=== PATIENT | female | born 1960 | race Caucasian/White ===

== ENCOUNTER 2016-11-20 16:36 | Emergency (ER) | payer SELFPAY ==
[2016-11-20 16:41] VITALS: BP 140/67; PULSE 78; TEMP 97.9; BMI 27.9
[2016-11-20] MEDS ORDERED: IBUPROFEN 400 MG TABLET (FP) PO ONE ×2 (17:46→17:52)
[2016-11-20] MEDS ORDERED: DIPHTH,PERTUSS(ACELL),TET 0.5 ML DISP.SYRIN IM ONE (18:31)
--- NOTE | 2016-11-20 18:37 | PDOC ---
History of Present Illness - General Chief Complaint: Wound Stated Complaint: WOUND INFECTION Time Seen by Provider: 11/20/16 17:20 History Source: Patient - History of Present Illness Occurred: reports: other Lower Extremity Pain Location: right: 1st toe Past History - Past Medical History Allergies/Adverse Reactions: Allergies Allergy/AdvReac Type Severity Reaction Status Date / Time fluconazole Allergy Rash Verified 11/20/16 16:41 Home Medications: Ambulatory Orders Atorvastatin Ca [Lipitor] 40 mg PO HS 11/20/16 Cephalexin [Keflex] 500 mg PO Q4H #28 capsule 11/20/16 Ibuprofen [Motrin -] 600 mg PO QID #28 tablet 11/20/16 Hypercholesterolemia: Yes - Immunization History Immunization Up to Date: Yes - Psycho/Social/Smoking Cessation Hx Anxiety: No Suicidal Ideation: No Smoking Status: No Smoking History: Never smoked Number of Cigarettes Smoked Daily: 0 Information on smoking cessation initiated: No Hx Alcohol Use: No Drug/Substance Use Hx: No Substance Use Type: None Review of Systems - Review of Systems Constitutional: No: Chills, Fever *Physical Exam - Vital Signs Last Vital Signs Temp Pulse Resp BP Pulse Ox 97.9 F 78 18 140/67 100 11/20/16 16:39 11/20/16 16:39 11/20/16 16:39 11/20/16 16:39 11/20/16 16:39 - Physical Exam General Appearance: Yes: Appropriately Dressed. No: Apparent Distress HEENT: positive: Normal Voice Neck: positive: Supple Respiratory/Chest: negative: Respiratory Distress Extremity: positive: Other (ingrown nail to R great toe w/ minmal swelling and erythema to affected paronychium, no induration/fluctuance) Integumentary: positive: Dry, Warm Neurologic: positive: Fully Oriented, Alert, Normal Mood/Affect ED Treatment Course - Medications Given in the ED: ED Medications Discontinued Medications Generic Name Dose Route Start Last Admin Trade Name Freq PRN Reason Stop Dose Admin Ibuprofen 800 mg 11/20/16 17:46 11/20/16 17:52 Motrin - PO 11/20/16 17:47 800 mg ONCE ONE Administration Medical Decision Making - Medical Decision Making 11/20/16 18:36 56 yo F, h/o HLD, here w/ R great toe pain and swellign x 1 week. No discharge, f/c. Denies trauma See exam Ingrown nail w/ early paronychia -pain control -tetanus -nail incision -no need for I&D -dc w/ abx -wound check in 2 days 11/20/16 18:38 11/20/16 18:39 S/p nail excision of ingrown nail s/p digital block w/ local wound care and dressing. Given ortho shoe for comfort. Stable for dc w/ abx and wound check in 2 days *DC/Admit/Observation/Transfer Diagnosis at time of Disposition: Ingrown nail Paronychia Qualifiers: Laterality: right Qualified Code(s): L03.011 - Cellulitis of right finger - Discharge Dispostion Disposition: HOME Condition at time of disposition: Good - Prescriptions Prescriptions: Cephalexin [Keflex] 500 mg PO Q4H #28 capsule Ibuprofen [Motrin -] 600 mg PO QID #28 tablet - Patient Instructions Printed Discharge Instructions: DI for Ingrown Toenail Removal, Paronychia Additional Instructions: Usted tiene timmy infeccin en el dedo del pie que fue causada por uas creciendo en khalil piel. En el futuro, para evitar esto, aaliyah las uas directamente a mohinder s y no demasiado corto. Tambin no usa zapatos que estn apretados alrededor de los dedos de los pies. Roger los antibiticos segn las indicaciones y volver a ED para la revisin de la herida en 2 bynum, antes si los sntomas empeoran. Print Language: HAITIAN
== END 2016-11-20 18:42 | disposition home or self-care (01) ==
LOC: JERFT 16:36
PROC: 0HBRXZZ Excision of Toe Nail, External Approach (ICD-10-PCS; principal; 2016-11-20)
DX: L60.0 Ingrowing nail (principal); L03.031 Cellulitis of right toe
CPT/HCPCS: 90715; 99281-25

== ENCOUNTER 2016-11-23 12:57 | Emergency (ER) | payer SELFPAY ==
[2016-11-23 13:03] VITALS: BP 116/66; PULSE 75; TEMP 98.5; BMI 29.2
--- NOTE | 2016-11-23 13:28 | PDOC ---
Suture Removal/Wound Check HPI - History of Present Illness Chief Complaint: Revisit,Wound Recheck Stated Complaint: REVISIT, FOLLOW UP Time Seen by Provider: 11/23/16 13:04 History Source: Yes: Patient Exam Limitations: Yes: No Limitations - Previous ED Treatment Type of procedure performed on last visit: Yes: Other (toenail removal) Past History - Past Medical History Allergies/Adverse Reactions: Allergies fluconazole Allergy (Verified 11/23/16 12:59) Rash Home Medications: Ambulatory Orders Atorvastatin Ca [Lipitor] 40 mg PO HS 11/20/16 Cephalexin [Keflex] 500 mg PO Q4H #28 capsule 11/20/16 Ibuprofen [Motrin -] 600 mg PO QID #28 tablet 11/20/16 General: Yes: no pertinent history - Immunization History Immunizations Up to Date: Yes Tetanus Status: Less than 5 years - Social History Smoking History: No Smoking Status: Never smoked Number of Ciarettes Per Day: 0 Alcohol Use: none Drug Use: none Suture Removal/Wound Check PE - Physical Exam Laceration/Wound Check Symptoms: reports: None, Resolved Comments: 11/23/16 13:30 right great toenail with bandage intact, no drainage or redness no swelling , FROM nv intact , no pus drainage 11/23/16 13:30 11/23/16 13:39 *Review of Systems - Review of Systems Able to Perform ROS?: Yes Constitutional: No: Symptoms Reported HEENTM: No: Symptoms Reported Respiratory: No: Symptoms reported Cardiac (ROS): No: Symptoms Reported ABD/GI: No: Symptoms Reported : No: Symptoms Reported Musculoskeletal: No: Symptoms Reported Integumentary: Yes: See HPI. No: Symptoms Reported Neurological: No: Symptoms reported Procedures - Laceration/Wound Repair Right 1st digit Progress: 11/23/16 13:39 wound redressed sterile dressing and bacitracin placed Medical Decision Making - Medical Decision Making 11/23/16 13:25 cc: wound check toenail removal 11/20/16 pt has no complaints of pain *DC/Admit/Observation/Transfer Diagnosis at time of Disposition: Visit for wound check - Discharge Dispostion Disposition: HOME Condition at time of disposition: Good - Referrals Referrals: Lucas Dhaliwal PA [Primary Care Provider] - Sonido Holder MD [Staff Physician] - - Patient Instructions Additional Instructions: continue antibiotics keep toe clean and dry , you may wash with soap and water please follow with the can line examiner for follow up Continuar con los antibiticos Mantenga los dedos limpios y secos, puede lavarse con agua y jabn Por favor, siga con el podlogo para el seguimiento
== END 2016-11-23 13:41 | disposition home or self-care (01) ==
LOC: JERFT 12:57
DX: Z48.01 Encounter for change or removal of surgical wound dressing (principal)
CPT/HCPCS: 99281-25

== ENCOUNTER 2016-12-04 13:04 | Emergency (ER) | payer OTHER ==
[2016-12-04 13:10] VITALS: BP 126/82; PULSE 80; TEMP 97.8; BMI 26.9
--- NOTE | 2016-12-04 13:47 | PDOC ---
History of Present Illness - General Chief Complaint: Pain Stated Complaint: PAIN Time Seen by Provider: 12/04/16 13:32 History Source: Patient, Chairman & Ceo Used Exam Limitations: Language Barrier - History of Present Illness Initial Comments: 12/04/16 13:43 12/04/16 13:43 56 yr female with ingrown toenail, nail fungus for one month. Pt has appointment December 08 at 1pm with podiatry. pt c/o pain. 12/04/16 16:14 Occurred: reports: just prior to arrival Lower Ext. Injury Location - Specific Injury Location Foot: right foot pain, right foot swelling (right great toenail with mild reness to the lateral fold, mild drainage ) Past History - Past Medical History Allergies/Adverse Reactions: Allergies Allergy/AdvReac Type Severity Reaction Status Date / Time fluconazole Allergy Rash Verified 12/04/16 13:10 Home Medications: Ambulatory Orders Atorvastatin Ca [Lipitor] 40 mg PO HS 11/20/16 Ibuprofen [Motrin -] 600 mg PO QID #28 tablet 11/20/16 Disorders: Yes (GASTRITIS) Hypercholesterolemia: Yes - Immunization History Immunization Up to Date: Yes - Psycho/Social/Smoking Cessation Hx Anxiety: No Suicidal Ideation: No Smoking Status: No Smoking History: Never smoked Have you smoked in the past 12 months: No Number of Cigarettes Smoked Daily: 0 Information on smoking cessation initiated: No Hx Alcohol Use: No Drug/Substance Use Hx: No Substance Use Type: None Review of Systems - Review of Systems Able to Perform ROS?: Yes Is the patient limited Yakut proficient: No *Physical Exam - Vital Signs Last Vital Signs Temp Pulse Resp BP Pulse Ox 97.8 F 80 18 126/82 97 12/04/16 13:09 12/04/16 13:09 12/04/16 13:09 12/04/16 13:09 12/04/16 13:09 - Physical Exam General Appearance: Yes: Nourished, Appropriately Dressed HEENT: positive: EOMI, SELAM Neck: positive: Supple Respiratory/Chest: positive: Lungs Clear, Normal Breath Sounds Cardiovascular: positive: Regular Rhythm, Regular Rate Extremity: positive: Normal Capillary Refill, Normal Inspection, Normal Range of Motion, Tender, Inflammation (right great toenail with discoloration and rough texture noted, redness to the lateral fold , mild drainage to the lateral fold) Integumentary: positive: Normal Color, Dry, Warm Neurologic: positive: Fully Oriented, Alert, Normal Mood/Affect, Normal Response , Motor Strength 5/5 Medical Decision Making - Medical Decision Making 12/04/16 21:52 cc: great right toenail with fungus , had ingrown toenail removed this month has not followed up with the room service runner presents today with continued pain and swelling pt denies fever or chills no abscess to the toe noted, no streaking pt has apt on December 08 with the room service runner I have explained via cymro translation to make sure she keeps that appointment to take motrin for pain and soak the toe in warm salt water 2-3 times a day and keep dry in between pt understands the plan and agrees with the plan of care *DC/Admit/Observation/Transfer Diagnosis at time of Disposition: Visit for wound check - Discharge Dispostion Disposition: HOME Condition at time of disposition: Good - Referrals Referrals: Addie Rivera MD [Primary Care Provider] - - Patient Instructions Additional Instructions: keep the toe dry continue taking the motrin for pain follow up on December 08 as planned with the room service runner Mantener el dedo del pie seco Sigue tomando el motrin para el dolor Seguimiento el jannie estaba previsto con el podlogo
== END 2016-12-04 13:56 | disposition home or self-care (01) ==
LOC: JERFT 13:04
DX: Z48.01 Encounter for change or removal of surgical wound dressing (principal); E78.00 Pure hypercholesterolemia, unspecified; K29.70 Gastritis, unspecified, without bleeding
CPT/HCPCS: 99281-25

== ENCOUNTER 2017-03-07 23:12 | Emergency (ER) | payer OTHER ==
[2017-03-07 23:36] VITALS: BP 157/86; PULSE 70; TEMP 97.7; BMI 28.3
--- NOTE | 2017-03-07 23:41 | PDOC ---
History of Present Illness - General History Source: Patient Exam Limitations: No Limitations - History of Present Illness Initial Comments: 03/07/17 23:44 The patient is a 57 year old female with a significant past medical history of HTN, gastritis and HLD who presents to the ED with complaints of lightheadedness since earlier today. The patient reports she was sleeping when she had a sudden onset of lightheadedness. Patient also reports nausea and chills associated with present symptoms. Patient also reports intermittent shortness of breath for the past several days. Patient states she visited her son earlier today who has GI symptoms. Denies fever. Denies abdominal pain or vomiting. Denies chest pain or shortness of breath. <Carey Quinones - Last Filed: 03/07/17 23:44> <Zully Ojeda - Last Filed: 03/08/17 03:02> - General Chief Complaint: Weakness Stated Complaint: FATIGUE Time Seen by Provider: 03/07/17 23:29 Past History <Carey Quinones - Last Filed: 03/07/17 23:44> - Past Medical History Disorders: Yes (GASTRITIS) Hypercholesterolemia: Yes - Immunization History Immunization Up to Date: Yes - Suicide/Smoking/Psychosocial Hx Smoking Status: No Smoking History: Never smoked Have you smoked in the past 12 months: No Number of Cigarettes Smoked Daily: 0 Information on smoking cessation initiated: No Hx Alcohol Use: No Drug/Substance Use Hx: No Substance Use Type: None <Zully Ojeda - Last Filed: 03/08/17 03:02> - Past Medical History Allergies/Adverse Reactions: Allergies Allergy/AdvReac Type Severity Reaction Status Date / Time fluconazole Allergy Rash Verified 03/07/17 23:34 Home Medications: Ambulatory Orders Atorvastatin Ca [Lipitor] 40 mg PO DAILY 11/20/16 [place]-3 Fatty Acids [[place]-3] 1,000 mg PO HS 03/08/17 Review of Systems - Review of Systems Able to Perform ROS?: Yes Comments:: 03/07/17 23:44 CONSTITUTIONAL: + chills No reported: Fever, Chills, Diaphoresis, Generalized Weakness, Malaise, Loss of Appetite HEENT: No reported: Rhinorrhea, Nasal Congestion, Throat Pain, Throat Swelling, Difficulty Swallowing, Mouth Swelling, Ear Pain, Eye Pain, Visual Changes CARDIOVASCULAR: No reported: Chest Pain, Syncope, Palpitations, Irregular Heart Rate, Lightheadedness, Peripheral Edema RESPIRATORY: + SOB No reported: Cough, SOB with Exertion, Orthopnea, Wheezing, Stridor, Hemoptysis GASTROINTESTINAL: + nausea No reported: Abdominal pain, Abdominal Distension, Vomiting, Diarrhea, Constipation, Melena, Hematochezia GENITOURINARY: No reported: Dysuria, Frequency, Urgency, Hesitancy, Flank Pain, Genital Pain MUSCULOSKELETAL: No reported: Myalgia, Arthralgia, Joint Swelling, Back pain, Neck Pain SKIN: No reported: Rash, Itching, Pallor HEMEATOLOGIC/IMMUNOLOGIC: No reported: Easy Bleeding, Easy Bruising, Lymphadenopathy, Frequent infections ENDOCRINE: No reported: Unexplained Weight Gain, Unexplained Weight Loss, Heat Intolerance , Cold Intolerance NEUROLOGIC: + lightheadedness No reported: Headache, Focal Weakness, Paresthesias, Vertigo, Unsteady Gait, Seizure, Mental Status Changes, Incontinence PSYCHIATRIC: No reported: Anxiety, Depression All Other Systems: Reviewed and Negative <Carey Quinones - Last Filed: 03/07/17 23:44> *Physical Exam - Vital Signs Last Vital Signs Temp Pulse Resp BP Pulse Ox 97.7 F 70 20 157/86 100 03/07/17 23:34 03/07/17 23:34 03/07/17 23:34 03/07/17 23:34 03/07/17 23:34 - Physical Exam Comments: 03/07/17 23:44 GENERAL: Well developed, well nourished. Awake and alert. No acute distress. HEENT: Normocephalic, atraumatic. PERRLA, EOMI. No conjunctival pallor. Sclera are non- icteric. Moist mucous membranes. Oropharynx is clear. NECK: Supple. Full ROM. No JVD. Carotid pulses 2+ and symmetric, without bruits. No thyromegaly. No lymphadenopathy. CARDIOVASCULAR: Regular rate and rhythm. No murmurs, rubs, or gallops. Distal pulses are 2+ and symmetric. PULMONARY: No evidence of respiratory distress. Lungs clear to auscultation bilaterally. No wheezing, rales or rhonchi. ABDOMINAL: Soft. Non-tender. Non-distended. No rebound or guarding. No organomegaly. Normoactive bowel sounds. MUSCULOSKELETAL Normal range of motion at all joints. No bony deformities or tenderness. No CVA tenderness. EXTREMITIES: No cyanosis. No clubbing. No edema. No calf tenderness. SKIN: Warm and dry. Normal capillary refill. No rashes. No jaundice. NEUROLOGICAL: Alert, awake, appropriate. Cranial nerves 2-12 intact. No deficits to light touch and temperature in face, upper extremities and lower extremities. No motor deficits in the in face, upper extremities and lower extremities. Normoreflexic in the upper and lower extremities. Normal speech. Toes are down- going bilaterally. Gait is normal without ataxia. PSYCHIATRIC: Cooperative. Good eye contact. Appropriate mood and affect. <Carey Quinones - Last Filed: 03/07/17 23:44> - Vital Signs Last Vital Signs Temp Pulse Resp BP Pulse Ox 97.7 F 70 20 157/86 100 03/07/17 23:34 03/07/17 23:34 03/07/17 23:34 03/07/17 23:34 03/07/17 23:34 <Zully Ojeda - Last Filed: 03/08/17 03:02> ED Treatment Course - LABORATORY CBC & Chemistry Diagram: 03/08/17 00:10 03/08/17 00:10 <Zully Ojeda - Last Filed: 03/08/17 03:02> Medical Decision Making - Medical Decision Making 03/08/17 02:59 57-year-old female presents tonight because of waves of nausea. She admitted to being with her grandson earlier today and the grandson was vomiting -her CT scan of the brain shows no acute brain parenchymal abnormality. No hemorrhage. No masses or acute territorial infarct. CBC is within normal limits. There is no leukocytosis and no anemia Chemistries show normal electrolytes, normal liver function tests and normal kidney function Urinalysis was negative Chest x-ray was negative Influenza culture was negative Patient was given Zofran for her nausea and discharged home <Zully Ojeda - Last Filed: 03/08/17 03:02> *DC/Admit/Observation/Transfer - Attestations Scribe Attestion: 03/07/17 23:44 Documentation prepared by Carey Quinones, acting as medical facilities section director for Zully Ojeda MD <Carey Quinones - Last Filed: 03/07/17 23:44> <Zully Ojeda - Last Filed: 03/08/17 03:02> Diagnosis at time of Disposition: Lightheadedness, Nausea - Discharge Dispostion Disposition: HOME Condition at time of disposition: Stable - Patient Instructions Printed Discharge Instructions: DI for Dizziness-Nonvertigo, DI for Nausea -- Adult Additional Instructions: please follow up with your regular physician this week return for any worsening symptoms
[2017-03-08 00:34] LABS: BASOPHIL 0.8 % (0-2.0); EOSINOPHIL 3.2 % (0-4.5); MCH 31.2 pg (25.7-33.7); MCHC 34.6 g/dl (32.0-36.0); MEAN CELL VOLUME 90.3 fl (80-96); MEAN PLT VOLUME 8.8 fl (7.5-11.1); NEUTROPHILS 55.4 % (42.8-82.8); PLATELET COUNT 224 K/MM3 (134-434); RDW 12.1 % (11.6-15.6); WHITE BLOOD COUNT 8.2 K/mm3 (4.0-10.0)
[2017-03-08 00:59] LABS: ALBUMIN 3.9 g/dl (3.4-5.0); ALK PHOS 90 U/L (45-117); ANION GAP 11 (8-16); BILIRUBIN,TOTAL 0.4 mg/dL (0.2-1.0); CALCIUM 8.8 mg/dL (8.5-10.1); CO2 24 mmol/L (21-32); CREATININE 0.8 mg/dL (0.55-1.02); GLUCOSE,RANDOM 118 mg/dL (74-106); SGOT/AST 21 U/L (15-37); SGPT/ALT 35 U/L (12-78); TOT PROT 7.2 g/dl (6.4-8.2)
[2017-03-08 01:08] LABS: CPK 149 IU/L (26-192); TROPONIN I < 0.02 ng/ml (0.00-0.05)
[2017-03-08] MEDS ORDERED: ONDANSETRON *ODT* 4 MG TABLET SL ONE (01:29)
[2017-03-08 01:32] LABS: URINE APPEARANCE CLEAR; URINE BILIRUBIN NEGATIVE (NEGATIVE); URINE BLOOD NEGATIVE (NEGATIVE); URINE COLOR COLORLESS; URINE GLUCOSE (UA) NEGATIVE (NEGATIVE); URINE KETONE NEGATIVE (NEGATIVE); URINE NITRITE NEGATIVE (NEGATIVE); URINE PROTEIN NEGATIVE (NEGATIVE); URINE UROBILINOGEN NEGATIVE mg/dL (0.2-1.0)
[2017-03-08] MEDS ORDERED: ONDANSETRON *ODT* 4 MG TABLET ONE (02:18)
[2017-03-08 09:26] LABS: URINE LEUK ESTERASE TRACE (NEGATIVE)
--- NOTE | 2017-03-08 10:00 | EKG ---
Test Reason : Blood Pressure : / mmHG Vent. Rate : 061 BPM Atrial Rate : 061 BPM P-R Int : 186 ms QRS Dur : 084 ms QT Int : 430 ms P-R-T Axes : 063 -03 007 degrees QTc Int : 432 ms NORMAL SINUS RHYTHM POSSIBLE LEFT ATRIAL ENLARGEMENT BORDERLINE ECG WHEN COMPARED WITH ECG OF 27-SEP-2012 00:06, NO SIGNIFICANT CHANGE WAS FOUND Confirmed by PRAKASH CAGE MD ([id number]) on 03/08/2017 9:59:50 AM Referred By: Confirmed By:PRAKASH CAGE MD
[2017-03-08 13:07] LABS: URINE BACTERIA FEW /hpf (NEGATIVE); URINE RBC NONE SEEN /hpf (0-3)
== END 2017-03-08 03:22 | disposition home or self-care (01) ==
LOC: JER 23:12
DX: R42 Dizziness and giddiness (principal); I10 Essential (primary) hypertension; E78.00 Pure hypercholesterolemia, unspecified
CPT/HCPCS: 36415; 70450-TC; 71020-TC; 80053; 81003; 81015; 82550; 83690; 84484; 85025; 87804; 93005; 93010; 99283-25

== ENCOUNTER 2017-08-04 11:12 | Emergency (ER) | payer OTHER ==
[2017-08-04 11:34] VITALS: BP 115/67; PULSE 68; TEMP 98.3; BMI 28.5
--- NOTE | 2017-08-04 11:35 | PDOC ---
Rapid Medical Evaluation Chief Complaint: Ingrown toenail Time Seen by Provider: 08/04/17 11:31 Medical Evaluation: Allergies Allergy/AdvReac Type Severity Reaction Status Date / Time fluconazole Allergy Rash Verified 08/04/17 11:29 Vital Signs Temp Pulse Resp BP Pulse Ox 98.3 F 68 19 115/67 98 08/04/17 11:29 08/04/17 11:29 08/04/17 11:29 08/04/17 11:29 08/04/17 11:29 08/04/17 11:35 2 weeks of toe pain, getting worse. no fever
[2017-08-04] MEDS ORDERED: ACETAMINOPHEN 325 MG TABLET (FP) PO ONE (12:16)
[2017-08-04] MEDS ORDERED: DIPHTH,PERTUSS(ACELL),TET 0.5 ML DISP.SYRIN IM ONE (12:16)
[2017-08-04] MEDS ORDERED: ACETAMINOPHEN 325 MG TABLET (FP) ONE (12:18)
--- NOTE | 2017-08-04 12:27 | PDOC ---
History of Present Illness - General Chief Complaint: Ingrown toenail Stated Complaint: RT FOOT PAIN Time Seen by Provider: 08/04/17 11:31 History Source: Patient - History of Present Illness Occurred: reports: other Severity: Yes: severe Past History - Past Medical History Allergies/Adverse Reactions: Allergies Allergy/AdvReac Type Severity Reaction Status Date / Time fluconazole Allergy Rash Verified 08/04/17 11:29 Home Medications: Ambulatory Orders Atorvastatin Ca [Lipitor] 40 mg PO DAILY 11/20/16 [place]-3 Fatty Acids [[place]-3] 1,000 mg PO HS 03/08/17 Acetaminophen [Tylenol] 2 tab PO Q6H #30 tablet 08/04/17 Clindamycin [Cleocin -] 300 mg PO Q6HPO #28 capsule 08/04/17 COPD: No Disorders: Yes (GASTRITIS) Hypercholesterolemia: Yes - Immunization History Immunization Up to Date: Yes - Suicide/Smoking/Psychosocial Hx Smoking Status: No Smoking History: Never smoked Have you smoked in the past 12 months: No Number of Cigarettes Smoked Daily: 0 Hx Alcohol Use: No Drug/Substance Use Hx: No Substance Use Type: None Review of Systems - Review of Systems Constitutional: No: Chills, Fever *Physical Exam - Vital Signs Last Vital Signs Temp Pulse Resp BP Pulse Ox 98.3 F 68 19 115/67 98 08/04/17 11:29 08/04/17 11:29 08/04/17 11:29 08/04/17 11:29 08/04/17 11:29 - Physical Exam General Appearance: Yes: Appropriately Dressed, Mild Distress HEENT: positive: Normal Voice Respiratory/Chest: negative: Respiratory Distress Extremity: positive: Other (ingrown nail to R great toe w/ limited erythema, no e/o paronychia) Medical Decision Making - Medical Decision Making 08/04/17 12:17 57-year-old female, history of gastritis, hyperlipidemia and insulin-dependent diabetic, here with right great toe pain and swelling 2 weeks. States pain radiating to foot/leg now. No fever, chills, or trauma. See exam Ingrown nail w/ possible infection, no e/o paronychia -pain control -tetanus -I&D -abx -wound check in 48 hrs 08/04/17 13:18 Pt s/p nail excision for ingrown nail. Dressing applied. Abx sent to pharmacy. Pt to return in 2 days for wound check *DC/Admit/Observation/Transfer Diagnosis at time of Disposition: Ingrown right greater toenail - Discharge Dispostion Disposition: HOME Condition at time of disposition: Improved - Prescriptions Prescriptions: Acetaminophen [Tylenol] 2 tab PO Q6H #30 tablet Clindamycin [Cleocin -] 300 mg PO Q6HPO #28 capsule - Referrals - Patient Instructions Printed Discharge Instructions: DI for Ingrown Toenail, DI for Ingrown Toenail Removal Additional Instructions: Tienes timmy ua encarnada que es cuando partes de la ua crecen en la piel. [place] est causando timmy infeccin. La ua del pie fue removida. Mantenga la herida limpia y seca y regrese a ER en 2 bynum para timmy nueva evaluacin. [place] antibi ticos segn lo prescrito. Regrese a ER ms pronto para empeorar el dolor o la fiebre. Contine realizando un seguimiento con khalil PMD para sobeida condiciones medulares cr nicas Print Language: ARMENIAN - Post Discharge Activity
[2017-08-04] MEDS ORDERED: LIDOCAINE HCL 1%, 10 MG/ML (20ML VIAL) ONE (12:40)
== END 2017-08-04 13:23 | disposition home or self-care (01) ==
LOC: JERFT 11:12
PROC: 3E0234Z Introduction of Serum, Toxoid and Vaccine into Muscle, Percutaneous Approach (ICD-10-PCS; principal; 2017-08-04)
DX: L60.0 Ingrowing nail (principal); E78.00 Pure hypercholesterolemia, unspecified
CPT/HCPCS: 90471; 90715; 99282-25

== ENCOUNTER 2017-09-14 11:44 | Observation (INO) | payer OTHER ==
[2017-09-14] MEDS ORDERED: SODIUM CHLORIDE 500 ML IV STA ×2 (12:52→13:43)
--- NOTE | 2017-09-14 12:55 | PDOC ---
History of Present Illness <Steve Perez - Last Filed: 09/14/17 16:22> - History of Present Illness Initial Comments: 09/14/17 12:54 (HPI obtained by the aid of Cook Islander-speaking healthcare worker) 57yo [place] Islander-speaking F with history of IDDM, gastritis, and HLD who presents with one month of intermittent, sharp LLQ abdominal pain with recent worsening within the past week. Her pain is noted to have some slight radiation to her L flank. Pt states she also noticed blood and mucus while defecating. She reports noting blood on the toilet paper and occasionally spots in the water of the toilet bowl. In addition she endorses some constipation and straining without any periods of diarrhea. While defecating, her pain is reported to get slightly worse and has the feeling of complete defecation. Her most recent colonoscopy was 5 years ago with normal findings (reported by her), however she forgets the name of the physician who performed the colonoscopy. Pt denies having this pain before, taking blood thinners, and any correlation with food. Denies fever/ chills, nausea, vomiting, SOB, CP/discomfort, dysuria, polyuria. PCP: Dr. Amador <Endy Parmar - Last Filed: 09/14/17 16:57> - General Chief Complaint: Pain Stated Complaint: ABD PAIN Time Seen by Provider: 09/14/17 12:35 Past History <Steve Perez - Last Filed: 09/14/17 16:22> - Past Medical History COPD: No Diabetes: Yes (PRE) Disorders: Yes (GASTRITIS) Hypercholesterolemia: Yes - Immunization History Immunization Up to Date: Yes - Suicide/Smoking/Psychosocial Hx Smoking Status: No Smoking History: Never smoked Have you smoked in the past 12 months: No Number of Cigarettes Smoked Daily: 0 Hx Alcohol Use: No Drug/Substance Use Hx: No Substance Use Type: None <Endy Parmar - Last Filed: 09/14/17 16:57> - Past Medical History Allergies/Adverse Reactions: Allergies Allergy/AdvReac Type Severity Reaction Status Date / Time fluconazole Allergy Rash Verified 09/14/17 12:08 Home Medications: Ambulatory Orders Atorvastatin Ca [Lipitor] 40 mg PO DAILY 11/20/16 [place]-3 Fatty Acids [[place]-3] 1,000 mg PO HS 03/08/17 Metformin HCl 500 mg PO BID 09/14/17 Review of Systems - Review of Systems Able to Perform ROS?: Yes Constitutional: No: Chills, Fever, Malaise HEENTM: No: Blurred Vision, Nose Congestion, Throat Pain Respiratory: No: Cough, Shortness of Breath, Wheezing Cardiac (ROS): No: Chest Pain, Lightheadedness, Palpitations, Syncope, Chest Tightness ABD/GI: Yes: Abd. Pain w/ defecation, Constipated, Rectal Bleeding, Abdominal cramping. No: Abdominal Distended, Diarrhea, Nausea, Vomiting, Tarry Stools : No: Dysuria, Frequency, Flank Pain Musculoskeletal: Yes: Back Pain. No: Neck Pain Neurological: No: Headache, Numbness, Tingling, Ataxia Psychiatric: No: Anxiety, Depression Hematologic/Lymphatic: No: Blood Clots, Easy Bleeding, Easy Bruising <Endy Parmar - Last Filed: 09/14/17 16:57> *Physical Exam - Vital Signs Last Vital Signs Temp Pulse Resp BP Pulse Ox 98.2 F 72 18 115/84 99 09/14/17 12:09 09/14/17 12:09 09/14/17 12:09 09/14/17 12:09 09/14/17 12:09 <Steve Perez - Last Filed: 09/14/17 16:22> - Vital Signs Last Vital Signs Temp Pulse Resp BP Pulse Ox 98.2 F 72 18 115/84 99 09/14/17 12:09 09/14/17 12:09 09/14/17 12:09 09/14/17 12:09 09/14/17 12:09 - Physical Exam Comments: 09/14/17 13:19 GEN: NAD, awake, alert and oriented, south korean speaking HEENT: NC/AT, EOMI, BLAKE, sclera anicteric, dry-moist mucosa Neck: Soft, No JVD LUNGS: CTA bilaterally CARDIAC: RRR no murmurs appreciated S1 and S2 normal ABD: Soft, nondistended, no ecchymotic areas, normoactive BS, LLQ > RLQ tenderness, no rebound, no guarding, negative Weaver's, negative McBurney's point tenderness, no hepatomegaly by percussion or palpation. RECTAL: No hemorrhoids, no masses, stool soft, pale stool noted, no overt bleeding EXT: No edema, 2+ DP pulses <Endy Parmar - Last Filed: 09/14/17 16:57> ED Treatment Course - LABORATORY CBC & Chemistry Diagram: 09/14/17 13:45 09/14/17 13:45 - ADDITIONAL ORDERS Additional order review: Laboratory Results 09/14/17 09/14/17 09/14/17 13:45 13:45 13:10 Sodium 142 Potassium 4.0 Chloride 107 Carbon Dioxide 25 Anion Gap 10 BUN 14 Creatinine 0.7 Creat Clearance w eGFR > 60 Random Glucose 92 Calcium 9.5 Total Bilirubin 0.4 AST 18 ALT 22 Alkaline Phosphatase 88 Total Protein 7.7 Albumin 4.1 Lipase 325 Urine Color Straw Urine Appearance Clear Urine pH 7.0 Ur Specific [place] 1.005 Urine Protein Negative Urine Glucose (UA) Negative Urine Ketones Negative Urine Blood Negative Urine Nitrite Negative Urine Bilirubin Negative Urine Urobilinogen Negative Ur Leukocyte Esterase Negative Stool Occult Blood Negative 09/14/17 13:45 RBC 4.24 MCV 90.3 MCHC 34.5 RDW 12.2 MPV 8.4 Neutrophils % 74.1 D Lymphocytes % 15.8 D Monocytes % 6.7 Eosinophils % 2.8 Basophils % 0.6 - Medications Given in the ED: ED Medications Discontinued Medications Generic Name Dose Route Start Last Admin Trade Name Freq PRN Reason Stop Dose Admin Sodium Chloride 500 mls @ 500 mls/hr 09/14/17 12:52 09/14/17 13:41 Normal Saline - IV 09/14/17 13:51 500 mls/hr ASDIR STA Administration Sodium Chloride 500 mls @ 500 mls/hr 09/14/17 13:43 09/14/17 14:12 Normal Saline - IV 09/14/17 14:42 500 mls/hr ASDIR STA Administration Morphine Sulfate 2 mg 09/14/17 13:19 09/14/17 13:40 Morphine Injection - IVPUSH 09/14/17 13:20 2 mg ONCE ONE Administration <Steve Perez - Last Filed: 09/14/17 16:22> - LABORATORY CBC & Chemistry Diagram: 09/14/17 13:45 09/14/17 13:45 <Endy Parmar - Last Filed: 09/14/17 16:57> Medical Decision Making - Medical Decision Making CT scan demonstrates sigmoid diverticulitis Interpreted by me no evidence of perforation final report pending Cipro Flagyl ordered Patient reevaluated still having pain feels dizzy with change in position does not feel comfortable returning home we'll observe overnight for IV antibiotics fluids and further management <Steve Perez - Last Filed: 09/14/17 16:22> - Medical Decision Making 09/14/17 13:22 DDx: Diverticulitis, colitis (infectious vs. ischemic vs. other), older presentation of Crohn's? --Doubt mesenteric ischemic --Doubt UTI/cystitis/urethritis --CBC, CMP, Lipase, UA, Urine Culture, Stool occult --NS@500cc bolus --Morphine 2mg IVP --CTAP with IV contrast only 09/14/17 14:31 Labs significant for 13,700 WBC Pt having CTAP being performed (Cr 0.7) 09/14/17 16:23 Pt continues to have some dizziness with change in position with continued abdominal pain. She does not feel comfortable going home as of now Will contact hospitalist team for M/S obs --IV Cipro 400mg x1 --IV Flagyl 500mg x1 <Endy Parmar - Last Filed: 09/14/17 16:57> *DC/Admit/Observation/Transfer <Steve Perez - Last Filed: 09/14/17 16:22> - Discharge Dispostion Admit: Yes <Endy Parmar - Last Filed: 09/14/17 16:57> Diagnosis at time of Disposition: Acute diverticulitis - Discharge Dispostion Condition at time of disposition: Stable
[2017-09-14] MEDS ORDERED: morphine CARPU-JECT 2 MG/1 ML DISP.SYRIN IVPUSH ONE (13:19)
[2017-09-14] MEDS ORDERED: MORPHINE SULFATE 10 MG/1 ML *VIAL ONE (13:23)
[2017-09-14 13:54] LABS: BASO % 0.6 % (0-2.0); EOS % 2.8 % (0-4.5); HEMATOCRIT 38.3 % (32.4-45.2); HEMOGLOBIN 13.2 GM/dL (10.7-15.3); LYMPH % 15.8 % (8-40); MCH 31.1 pg (25.7-33.7); MCHC 34.5 g/dl (32.0-36.0); MEAN CELL VOLUME 90.3 fl (80-96); MEAN PLT VOLUME 8.4 fl (7.5-11.1); MONO % 6.7 % (3.8-10.2); NEUT % 74.1 % (42.8-82.8); PLATELET COUNT 268 K/MM3 (134-434); RBC 4.24 M/mm3 (3.60-5.2); RDW 12.2 % (11.6-15.6); WHITE BLOOD COUNT 13.7 K/mm3 (4.0-10.0)
[2017-09-14 13:56] LABS: URINE APPEARANCE CLEAR; URINE BILIRUBIN NEGATIVE (<2.0 mg/dL); URINE COLOR STRAW; URINE GLUCOSE (UA) NEGATIVE (NEGATIVE); URINE KETONE NEGATIVE (NEGATIVE); URINE LEUK ESTERASE NEGATIVE (NEGATIVE); URINE NITRITE NEGATIVE (NEGATIVE); URINE PROTEIN NEGATIVE (NEGATIVE); URINE UROBILINOGEN NEGATIVE mg/dL (0.2-1.0)
[2017-09-14 14:26] LABS: ALBUMIN 4.1 g/dl (3.4-5.0); ANION GAP 10 (8-16); BILIRUBIN,TOTAL 0.4 mg/dL (0.2-1.0); BLOOD UREA NITROGEN 14 mg/dL (7-18); CALCIUM 9.5 mg/dL (8.5-10.1); CHLORIDE 107 mmol/L (98-107); CO2 25 mmol/L (21-32); CREATININE 0.7 mg/dL (0.55-1.02); GLUCOSE,RANDOM 92 mg/dL (74-106); SGOT/AST 18 U/L (15-37); SGPT/ALT 22 U/L (12-78); SODIUM 142 mmol/L (136-145); TOT PROT 7.7 g/dl (6.4-8.2)
[2017-09-14 14:27] LABS: ALK PHOS 88 U/L (45-117)
[2017-09-14 14:29] LABS: LIPASE 325 U/L (73-393)
[2017-09-14] MEDS ORDERED: CIPROFLOXACIN 400 MG/D5W 400 MG/200 ML IVPB IVPB ONE (16:21)
--- NOTE | 2017-09-14 16:57 | HP ---
Admitting History and Physical - Admission Chief Complaint: abdominal pain History of Present Illness: HPI: Briefly, this 57 year old female pmhx history of IDDM, gastritis, and HLD presented to the ED with worsening LLQ pain with L flank radiation since 09/09. She went to see her PCP who told her to take pepto bismol and the pain worsened. Last night the LLQ pain was very strong and today, during bowel movement pt noted mucus and blood on some drops in toilet bowl and pain worsened. PT denies sob, cp, fever, chills, cough. She did have a colonoscopy 5 years ago, dose not remember preforming doctor, results unremarkable. In the ED she continues to have nausea and intractable pain requiring IV pain medication. History Source: Patient, Medical Record Limitations to Obtaining History: No Limitations - Past Medical History Cardiovascular: Yes: Hyperlipdemia Gastrointestinal: Yes: Gastritis Endocrine: Yes: Diabetes Mellitus - Past Surgical History Past Surgical History: Yes: Colonoscopy - Smoking History Smoking history: Never smoked Have you smoked in the past 12 months: No Aproximately how many cigarettes per day: 0 - Alcohol/Substance Use Hx Alcohol Use: No Home Medications - Allergies Allergies/Adverse Reactions: Allergies Allergy/AdvReac Type Severity Reaction Status Date / Time fluconazole Allergy Rash Verified 09/14/17 12:08 - Home Medications Home Medications: Ambulatory Orders Atorvastatin Ca [Lipitor] 40 mg PO DAILY 11/20/16 [place]-3 Fatty Acids [[place]-3] 1,000 mg PO HS 03/08/17 Metformin HCl 500 mg PO BID 09/14/17 Review of Systems - Review of Systems Constitutional: reports: No Symptoms Eyes: reports: No Symptoms HENT: reports: No Symptoms Neck: reports: No Symptoms Cardiovascular: reports: No Symptoms Respiratory: reports: No Symptoms Gastrointestinal: reports: Abdominal Pain, Nausea, Rectal Bleeding Genitourinary: reports: No Symptoms Musculoskeletal: reports: No Symptoms Integumentary: reports: No Symptoms Neurological: reports: No Symptoms Endocrine: reports: No Symptoms Hematology/Lymphatic: reports: No Symptoms Psychiatric: reports: No Symptoms Physical Examination Vital Signs: Vital Signs Temperature 98.2 F 09/14/17 12:09 Pulse Rate 72 09/14/17 12:09 Respiratory Rate 18 09/14/17 12:09 Blood Pressure 115/84 09/14/17 12:09 O2 Sat by Pulse Oximetry (%) 99 09/14/17 12:09 Constitutional: Yes: Well Nourished, No Distress Eyes: Yes: Conjunctiva Clear HENT: Yes: Atraumatic Neck: Yes: Trachea Midline Cardiovascular: Yes: Regular Rate and Rhythm, S1, S2 Respiratory: Yes: Regular, CTA Bilaterally Gastrointestinal: Yes: Normal Bowel Sounds, Soft, Tenderness (LLQ) Renal/: Yes: WNL Musculoskeletal: Yes: WNL Extremities: Yes: WNL Edema: No Peripheral Pulses WNL: Yes Peripheral Pulses: Left Doralis Pedis: 2+, Right Dorsalis Pedis: 2+ Integumentary: Yes: WNL Neurological: Yes: Alert, Oriented, Cran Nerves II-XII Intact Labs: CBC, BMP 09/14/17 13:45 09/14/17 13:45 Imaging - Results Chest X-ray: Pending Cat Scan: Report Reviewed (mild continuous concentric wall thickening along rectum and sigmoid colon suggestive of acute colitis) EKG: Pending Problem List - Problems (1) Acute colitis Code(s): K52.9 - NONINFECTIVE GASTROENTERITIS AND COLITIS, UNSPECIFIED (2) Lightheadedness Code(s): R42 - DIZZINESS AND GIDDINESS (3) Nausea Code(s): R11.0 - NAUSEA Assessment/Plan Assessment: 57 year old female admitted with worsening LLQ pain. Plan: 1. Acute colitis - CTAP noted - Continue levaquin, flagyl - Start fluids ns 100cc/hr - NPO except water ice chips - Start clears in AM if improved - Morphine prn - Check EKG, CXR 2. HLD - Hold statin for now 3. DM II - Hold metformin - ISS, BGM ACHS 4. DVT - Heparin sq Visit type - Emergency Visit Emergency Visit: Yes ED Registration Date: 09/14/17 Care time: The patient presented to the Emergency Department on the above date and was hospitalized for further evaluation of their emergent condition. - New Patient This patient is new to me today: Yes Date on this admission: 09/14/17 - Critical Care Critical Care patient: No Hospitalist Screening - Colonoscopy Questionnaire Colonoscopy Questionnaire: Colonoscopy Questionnaire - Patient: 50 - 75 years old and never had a screening colonoscopy: Yes History of colon or rectal polyps, or CA: Unknown History of IBD, Crohn's disease or UC: Unknown History of abdominal radiation therapy as a child: Unknown - Relative: 1 with colon or rectal CA, or polyps at age 60 or younger: Unknown Colon or rectal CA diagnosed at age 45 or younger: Unknown Multiple relatives with colon or rectal CA: Unknown - Outcome: Screening Result: Positive Screen
[2017-09-14] MEDS ORDERED: ONDANSETRON 4 MG/2 ML VIAL IVPUSH PRN (16:59)
[2017-09-14] MEDS ORDERED: morphine SULFATE 4 MG/ML VIAL IVPUSH PRN (17:17)
[2017-09-14] MEDS: SODIUM CHLORIDE 1,000 ML IV SCH (17:35)
[2017-09-14 18:27] VITALS: BMI 33.7
[2017-09-14] MEDS: INSULIN SLIDING SCALE (NOVOLOG) 1 VIAL SQ SCH (21:51)
[2017-09-14] MEDS: HEPARIN NA (PORCINE) 5,000 UNITS/ML 1ML VIAL SQ SCH (21:54)
[2017-09-15] MEDS: SODIUM CHLORIDE 1,000 ML IV SCH ×2 (00:17→10:20)
[2017-09-15] MEDS: HEPARIN NA (PORCINE) 5,000 UNITS/ML 1ML VIAL SQ SCH ×3 (05:56→21:51)
[2017-09-15] MEDS: INSULIN SLIDING SCALE (NOVOLOG) 1 VIAL SQ SCH ×4 (06:05→21:51)
[2017-09-15 07:31] LABS: BASO % 0.7 % (0-2.0); EOS % 4.7 % (0-4.5); HEMATOCRIT 38.3 % (32.4-45.2); HEMOGLOBIN 13.2 GM/dL (10.7-15.3); LYMPH % 26.7 % (8-40); MCH 31.3 pg (25.7-33.7); MCHC 34.5 g/dl (32.0-36.0); MEAN CELL VOLUME 90.7 fl (80-96); MEAN PLT VOLUME 8.5 fl (7.5-11.1); MONO % 6.9 % (3.8-10.2); PLATELET COUNT 236 K/MM3 (134-434); RBC 4.22 M/mm3 (3.60-5.2); RDW 12.1 % (11.6-15.6); WHITE BLOOD COUNT 7.8 K/mm3 (4.0-10.0)
[2017-09-15 08:09] LABS: ALBUMIN 3.6 g/dl (3.4-5.0); ANION GAP 10 (8-16); BLOOD UREA NITROGEN 9 mg/dL (7-18); CALCIUM 8.7 mg/dL (8.5-10.1); CHLORIDE 109 mmol/L (98-107); CO2 24 mmol/L (21-32); GLUCOSE,RANDOM 82 mg/dL (74-106); SODIUM 143 mmol/L (136-145)
[2017-09-15 08:15] LABS: ALK PHOS 73 U/L (45-117); BILIRUBIN,TOTAL 0.6 mg/dL (0.2-1.0); CREATININE 0.7 mg/dL (0.55-1.02); SGOT/AST 18 U/L (15-37); SGPT/ALT 20 U/L (12-78)
--- NOTE | 2017-09-15 10:32 | EKG ---
Test Reason : Blood Pressure : / mmHG Vent. Rate : 059 BPM Atrial Rate : 059 BPM P-R Int : 168 ms QRS Dur : 080 ms QT Int : 420 ms P-R-T Axes : 058 -09 004 degrees QTc Int : 415 ms SINUS BRADYCARDIA OTHERWISE NORMAL ECG WHEN COMPARED WITH ECG OF 08-MAR-2017 00:43, NO SIGNIFICANT CHANGE WAS FOUND Confirmed by HARRY JIMÉNEZ MD ([id number]) on 09/15/2017 10:31:47 AM Referred By: Confirmed By:HARRY JIMÉNEZ MD
[2017-09-15] MEDS ORDERED: oxyCODONE HCL 5 MG TABLET PO ONE (11:30)
--- NOTE | 2017-09-15 14:04 | PN ---
Physical Exam: SUBJECTIVE: Patient seen and examined. Pain is improved, however still cramping and colicky OBJECTIVE: Vital Signs Period Temp Pulse Resp BP Sys/Granados Pulse Ox Last 24 Hr 98 F-98.7 F 59-80 18-20 105-136/68-82 96-99 Pe Neuro: alert, awake, cn 2-12intact Pulm: CTAB CV: s1 s2 rrr no mrg Abd: LLQ tenderness +bs soft Ext: warm, no le edema Laboratory Results - last 24 hr 09/14/17 09/15/17 09/15/17 20:59 05:54 06:40 WBC 7.8 D RBC 4.22 Hgb 13.2 Hct 38.3 MCV 90.7 MCH 31.3 MCHC 34.5 RDW 12.1 Plt Count 236 MPV 8.5 Neutrophils % 61.0 Lymphocytes % 26.7 D Monocytes % 6.9 Eosinophils % 4.7 H Basophils % 0.7 Sodium Potassium Chloride Carbon Dioxide Anion Gap BUN Creatinine Creat Clearance w eGFR POC Glucometer 94 88 Random Glucose Calcium Total Bilirubin AST ALT Alkaline Phosphatase Total Protein Albumin Lipase Urine Color Urine Appearance Urine pH Ur Specific [place] Urine Protein Urine Glucose (UA) Urine Ketones Urine Blood Urine Nitrite Urine Bilirubin Urine Urobilinogen Ur Leukocyte Esterase 09/15/17 09/15/17 06:40 11:53 WBC RBC Hgb Hct MCV MCH MCHC RDW Plt Count MPV Neutrophils % Lymphocytes % Monocytes % Eosinophils % Basophils % Sodium 143 Potassium 4.0 Chloride 109 H Carbon Dioxide 24 Anion Gap 10 BUN 9 Creatinine 0.7 Creat Clearance w eGFR > 60 POC Glucometer 82 Random Glucose 82 Calcium 8.7 Total Bilirubin 0.6 D AST 18 ALT 20 Alkaline Phosphatase 73 Total Protein 7.0 Albumin 3.6 Lipase Urine Color Urine Appearance Urine pH Ur Specific [place] Urine Protein Urine Glucose (UA) Urine Ketones Urine Blood Urine Nitrite Urine Bilirubin Urine Urobilinogen Ur Leukocyte Esterase Active Medications Generic Name Dose Route Start Last Admin Trade Name Freq PRN Reason Stop Dose Admin Heparin Sodium (Porcine) 5,000 unit 09/14/17 18:00 09/15/17 05:56 Heparin - SQ 5,000 unit TID SHANTE Administration Metronidazole 500 mg in 100 mls @ 100 mls/hr 09/15/17 02:00 09/15/17 10:06 Flagyl 500mg Premixed Ivpb - IVPB 100 mls/hr Q8H-IV SHANTE Administration Levofloxacin 500 mg in 100 mls @ 100 mls/hr 09/15/17 10:00 09/15/17 10:05 Levaquin 500 Mg Premixed Ivpb - IVPB 100 mls/hr DAILY SHANTE Administration Protocol Sodium Chloride 1,000 mls @ 75 mls/hr 09/15/17 09:58 09/15/17 10:20 Normal Saline - IV 75 mls/hr ASDIR SHANTE Administration Insulin Aspart 1 vial 09/14/17 22:00 09/15/17 11:55 Novolog Vial Sliding Scale - SQ Not Given ACHS SHANTE Protocol Morphine Sulfate 2 mg 09/14/17 17:17 09/15/17 10:11 Morphine Sulfate IVPUSH 2 mg Q4H PRN Administration PAIN LEVEL 1-5 Ondansetron HCl 4 mg 09/14/17 16:59 09/15/17 12:46 Zofran Injection IVPUSH 4 mg Q6H PRN Administration NAUSEA Microbiology 09/14/17 13:40 Urine Culture - Final Urine - Urine Clean Catch NO GROWTH OBTAINED Assessment: 57 year old female admitted with worsening LLQ pain. Plan: 1. Acute colitis - WBC improved - Continue levaquin, flagyl - Decrease fluids ns 75cc/hr - Clears - Zofran - No stool studies as pt had abx, obtain if worsens - Will need outpt GI work up once abx completed, will send referral, pt understands 2. HLD - Hold statin for now 3. DM II - Hold metformin - ISS, BGM ACHS 4. DVT - Heparin sq Problem List - Problems (1) Acute colitis Code(s): K52.9 - NONINFECTIVE GASTROENTERITIS AND COLITIS, UNSPECIFIED (2) Lightheadedness Code(s): R42 - DIZZINESS AND GIDDINESS (3) Nausea Code(s): R11.0 - NAUSEA Visit type - Emergency Visit Emergency Visit: Yes ED Registration Date: 09/14/17 Care time: The patient presented to the Emergency Department on the above date and was hospitalized for further evaluation of their emergent condition. - New Patient This patient is new to me today: No - Critical Care Critical Care patient: No
[2017-09-15] MEDS ORDERED: INSULIN (NOVOLOG) ASPART 100 UNITS/ML 10ML VIAL ONE (17:30)
[2017-09-16] MEDS: SODIUM CHLORIDE 1,000 ML IV SCH ×2 (01:20→10:36)
[2017-09-16] MEDS: INSULIN SLIDING SCALE (NOVOLOG) 1 VIAL SQ SCH ×2 (06:22→10:59)
[2017-09-16] MEDS: HEPARIN NA (PORCINE) 5,000 UNITS/ML 1ML VIAL SQ SCH (06:26)
[2017-09-16 07:22] LABS: EOS % 6.1 % (0-4.5); HEMATOCRIT 40.2 % (32.4-45.2); HEMOGLOBIN 13.8 GM/dL (10.7-15.3); LYMPH % 31.1 % (8-40); MCH 31.3 pg (25.7-33.7); MCHC 34.3 g/dl (32.0-36.0); MEAN CELL VOLUME 91.2 fl (80-96); MEAN PLT VOLUME 8.5 fl (7.5-11.1); MONO % 7.6 % (3.8-10.2); NEUT % 54.2 % (42.8-82.8); PLATELET COUNT 229 K/MM3 (134-434); RDW 12.3 % (11.6-15.6); WHITE BLOOD COUNT 6.5 K/mm3 (4.0-10.0)
[2017-09-16 08:26] VITALS: BP 115/70; PULSE 64; TEMP 98.3
[2017-09-16] MEDS ORDERED: PT OWN MED DRAWER 7, Y5N ONE (09:35)
--- NOTE | 2017-09-16 10:48 | DS ---
Physical Exam: SUBJECTIVE: Patient seen and examined. She is feeling better today, no vomiting. OBJECTIVE: Vital Signs Period Temp Pulse Resp BP Sys/Granados Pulse Ox Last 24 Hr 98.0 F-98.7 F 64-82 18-20 115-130/69-74 96-96 Pe Neuro: alert, awake, cn 2-12intact Pulm: CTAB CV: s1 s2 rrr no mrg Abd: LLQ mild tenderness +bs soft Ext: warm, no le edema Laboratory Results - last 24 hr 09/16/17 09/16/17 05:19 06:20 WBC 6.5 RBC 4.40 Hgb 13.8 Hct 40.2 MCV 91.2 MCH 31.3 MCHC 34.3 RDW 12.3 Plt Count 229 MPV 8.5 Neutrophils % 54.2 Lymphocytes % 31.1 Monocytes % 7.6 Eosinophils % 6.1 H Basophils % 1.0 POC Glucometer 82 HOSPITAL COURSE: Date of Admission:09/14/17 Date of Discharge: 09/16/17 Minutes to complete discharge: 37 Discharge Summary Reason For Visit: INTRACTABLE ABDOMINAL PAIN; ACUTE DIVERTICULITIS Current Active Problems Acute colitis (Acute) Acute diverticulitis (Acute) Hospital Course: Initial Hospital Course: Briefly, this 57 year old female pmhx history of IDDM, gastritis, and HLD presented worsening LLQ pain with L flank radiation since 09/09. She went to see her PCP who told her to take pepto bismol and the pain worsened. Pain worsened over the week at LLQ and during bowel movement pt noted mucus and blood on some drops in toilet bowl and pain worsened. She did have a colonoscopy 5 years ago, dose not remember preforming doctor, results unremarkable. Subsequent Hospital Course/Progress Note/DC summary: Assessment: 57 year old female admitted with worsening LLQ pain. Plan: 1. Acute colitis - Resolving - Continue levaquin 500mg daily, flagyl 500mg tid x 10days total - Outpt GI follow up once abx completed, referrals enclosed 2. HLD - no statin 3. DM II - Resume metformin Dispo: - Home with abx and GI follow up - Pt aware and agrees to above plan Condition: Stable - Instructions Diet, Activity, Other Instructions: Please return to the ED for any new, persistent, or worsening symptoms. Follow up with your PCP in 1week Take antibiotics as directed until completed Follow up with GI doctor (referral enclosed) once antibiotics are complete Referrals: Bimal Gomez MD [Staff Physician] - 2 Weeks (Followup for GI work up and possible colonoscopy ) Kelvin Petty MD [Staff Physician] - Disposition: HOME - Home Medications Comprehensive Discharge Medication List: Ambulatory Orders Atorvastatin Ca [Lipitor] 40 mg PO DAILY 11/20/16 [place]-3 Fatty Acids [[place]-3] 1,000 mg PO HS 03/08/17 Metformin HCl 500 mg PO BID 09/14/17 Oxycodone HCl/Acetaminophen [Percocet 5-325 mg Tablet] 1 tab PO Q6H #20 tablet MDD 4 09/15/17 metroNIDAZOLE [Flagyl -] 500 mg PO TID #26 tablet 09/15/17 levoFLOXacin [Levaquin -] 500 mg PO DAILY #7 tablet 09/16/17 Problem List - Problems (1) Acute colitis Code(s): K52.9 - NONINFECTIVE GASTROENTERITIS AND COLITIS, UNSPECIFIED (2) Lightheadedness Code(s): R42 - DIZZINESS AND GIDDINESS (3) Nausea Code(s): R11.0 - NAUSEA This patient is new to me today: No Emergency Visit: Yes ED Registration Date: 09/14/17 Care time: The patient presented to the Emergency Department on the above date and was hospitalized for further evaluation of their emergent condition. Critical Care patient: No - Discharge Referral Referred to [facility] No
== END 2017-09-16 12:56 | disposition home or self-care (01) ==
LOC: JER 11:44 → JERBED 16:54 → J6S 18:35
PROVIDERS: ADMIT Internal Medicine; ATTEND Nurse Practitioner Acute Care
PROC: 3E03329 Introduction of Other Anti-infective into Peripheral Vein, Percutaneous Approach (ICD-10-PCS; principal; 2017-09-14)
PROC: 3E033NZ Introduction of Analgesics, Hypnotics, Sedatives into Peripheral Vein, Percutaneous Approach (ICD-10-PCS; 2017-09-14)
PROC: 3E033GC Introduction of Other Therapeutic Substance into Peripheral Vein, Percutaneous Approach (ICD-10-PCS; 2017-09-14)
PROC: 3E0337Z Introduction of Electrolytic and Water Balance Substance into Peripheral Vein, Percutaneous Approach (ICD-10-PCS; 2017-09-14)
PROC: 3E013GC Introduction of Other Therapeutic Substance into Subcutaneous Tissue, Percutaneous Approach (ICD-10-PCS; 2017-09-14)
DX: K57.32 Diverticulitis of large intestine without perforation or abscess without bleeding (principal); K52.9 Noninfective gastroenteritis and colitis, unspecified; R42 Dizziness and giddiness; R11.0 Nausea; E11.9 Type 2 diabetes mellitus without complications; E78.5 Hyperlipidemia, unspecified; Z79.84 Long term (current) use of oral hypoglycemic drugs
CPT/HCPCS: 36415; 71045-TC-FY; 74177-TC; 80053; 81003; 82272; 82962; 83690; 85025; 87086; 93005; 93010; 96361; 96365; 96368; 96372; 96375; 96376; 99284-25; G0378; J1644; J7030

== ENCOUNTER 2018-07-12 16:47 | Observation (INO) | payer OTHER ==
[2018-07-12 17:05] VITALS: BMI 25.7
--- NOTE | 2018-07-12 19:31 | PDOC ---
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 States it feels like the room is spinning. Made worse when standing or laying back from seated position. No change when closing eyes or turning neck side to side. Denies disequilibrium. Endorses noise like an insect is in my right ear. Has a history of similar symptoms approx. one year ago. Was not evaluated by a neurologist. Denies syncope, neck pain, or chest pain. Pt is Finnish speaking only. [employer] was utilized for telephone interpretation. PCP: Dr. Yaniv Amador Medical Hx: - Diabetes, managed with metformin - HLD, on statin therapy - Gastritis, on pantoprazol Past History - Past Medical History Allergies/Adverse Reactions: Allergies Allergy/AdvReac Type Severity Reaction Status Date / Time fluconazole Allergy Rash Verified 09/14/17 12:08 Home Medications: Ambulatory Orders Atorvastatin Ca [Lipitor] 40 mg PO DAILY 11/20/16 [place]-3 Fatty Acids [[place]-3] 1,000 mg PO HS 03/08/17 metFORMIN HCL [Metformin HCl] 500 mg PO BID 09/14/17 Pantoprazole Sodium 40 mg PO DAILY 07/12/18 COPD: No Diabetes: Yes (PRE) Disorders: Yes (GASTRITIS) Hypercholesterolemia: Yes - Surgical History Gastric Stapling: No - Immunization History Immunization Up to Date: Yes - Suicide/Smoking/Psychosocial Hx Smoking Status: No Smoking History: Never smoked Have you smoked in the past 12 months: No Number of Cigarettes Smoked Daily: 0 Information on smoking cessation initiated: No Hx Alcohol Use: No Drug/Substance Use Hx: No Substance Use Type: None Review of Systems - Review of Systems Able to Perform ROS?: Yes Comments:: In addition to that documented in the HPI above, the additional ROS was obtained : Constitutional: Denies fevers or chills Head: Endorses generalized headache. Endorses occasional blurry vision that quickly resolves. ENMT: Denies sore throat CV: Denies chest pain Resp: Endorses SOB secondary to sensation of phlegm in throat GI: Denies vomiting or diarrhea : Endorses increased urinary frequency, but denies dysuria, hematuria, or vaginal discharge. MSK: Denies recent trauma Skin: Denies new rashes Neuro: Denies new numbness or tingling or weakness Endocrine: Denies polyuria Heme: Denies bleeding or bruising Is the patient limited Uzbek proficient: No *Physical Exam - Vital Signs Last Vital Signs Temp Pulse Resp BP Pulse Ox 98.8 F 78 18 137/71 98 07/12/18 17:01 07/12/18 17:01 07/12/18 17:01 07/12/18 17:01 07/12/18 17:01 - Physical Exam Comments: Constitutional: Non-toxic adult female in no acute distress but in mild obvious discomfort. Found semi-fowlers on hospital bed. Alert and oriented x4. Answered all questions appropriately and completely. Speech was non-labored, non- pressured. Head: Normocephalic. No obvious external signs of trauma. Eyes: Pupils 4mm and PERRL bilaterally. EOMI. No horizontal or vertical nystagmus. Sclerae white. Conjunctiva moist and not injected. Ears: External auditory canals and tympanic membranes pearly najera bilaterally. Hearing grossly intact. Nose: No nasal discharge. Throat: Oral cavity and pharynx normal. No inflammation, swelling, exudate, or lesions. Uvula midline. Neck: Supple, trachea is midline. No c-spine tenderness. No nuchal rigidity. Cardiovascular / Chest: Regular rate and regular rhythm. No murmur, rubs, clicks, or gallops. Peripheral pulses: radial pulses full. Respiratory: Breathing unlabored. Equal chest rise and fall. Clear to auscultation bilaterally. No stridor, no wheezing, no rhonchi. Neuro: Alert and oriented. Moving all four extremities spontaneously. No focal deficits. Cranial nerves intact. Sensation to all four extremities intact. Upper and lower extremities: proximal and distal strength 5/5. Calender Runner strength 5/ 5 - equal and symmetric. Plantar flexion and dorsiflexion 5/5. Intact rapid alternating movements or heel to cali. Pt unable to ambulate after becoming dizzy when sitting upright on edge of bed. Skin: Warm, dry, and intact. Psych: Affect: appropriate. Mood: normal. Moderate Sedation - Procedure Monitoring Vital Signs: Procedure Monitoring Vital Signs Temperature 98.8 F 07/12/18 17:01 Pulse Rate 78 07/12/18 17:01 Respiratory Rate 18 07/12/18 17:01 Blood Pressure 137/71 07/12/18 17:01 O2 Sat by Pulse Oximetry (%) 98 07/12/18 17:01 ED Treatment Course - LABORATORY CBC & Chemistry Diagram: 07/12/18 21:49 07/12/18 21:49 Medical Decision Making - Medical Decision Making *Reviewed vital signs, nursing notes, and prior visit documentation (if available). 58 y/o female with multiple stroke risk factors presenting with progressive dizziness and nausea x1 week. Afebrile. Vitals unremarkable for hypotension or tachycardia. Physical exam as described above. Acute worsening of symptoms when transitioning from semi-fowlers to sitting position during exam. Unable to assess gait. Suspect likely peripheral vertigo including Meniere's versus vestibular neuritis. However, given pts h/o diabetes and HLD will evaluate for central lesion with non-contrast head CT. Will obtain CBC, BMP, troponin, and EKG. Will obtain UA and culture for pts reported urinary symptoms. Ordered zofran, meclizine, and IVFB. EKG revealed sinus bradycardia with a ventricular rate of 59 bpm. Normal axis. Normal intervals. No ST segment elevation or depression. No hyperacute T waves or pathologic Q waves. Pt to be re-evaluated and disposition placed by ED attending. *DC/Admit/Observation/Transfer Diagnosis at time of Disposition: Dizziness - Discharge Dispostion Condition at time of disposition: Stable - Referrals Referrals: ON STAFF,NOT [Primary Care Provider] - - Patient Instructions - Post Discharge Activity
--- NOTE | 2018-07-12 19:41 | PDOC ---
Attending Attestation - HPI HPI: 07/12/18 21:16 The patient is a 58 year old female with a significant past medical history of diabetes( on metformin), gastritis, hyperlipidemia, and GERD who presents to the emergency department with worsening dizziness for 1 week. The patient reports some associated lightheadedness and nausea with her symptom. She states that she feels as if the room is spinning when she is standing and laying flat. She reports that her symptoms are relieved minimally with sitting up. The patient also reports some blurry vision that is self resolving and phlegm in her throat. She states that she has had a similar episode of dizziness in the last but denies being on any medication or any neuro follow up. The patient also reports some urinary frequency without hematuria or dysuria she denies any other symptoms. She denies any fever, chills, vomiting, diarrhea, headache, chest pain, shortness of breath. The patient denies any other complaints. - Physicial Exam PE: 07/12/18 21:16 Agrees with resident exam. <Howie Sutton - Last Filed: 07/12/18 21:16> - Resident Resident Name: Sonido Thomas - ED Attending Attestation I have performed the following: I have examined & evaluated the patient, The case was reviewed & discussed with the resident, I agree w/resident's findings & plan - Medical Decision Making 07/13/18 00:37 58-year-old female with dizziness, ataxia and ringing to the right ear CT scan of the brain shows no acute findings The exam likely consistent with a peripheral vertigo due to patient's persistent dizziness despite meclizine she will be observed for MRI in the morning to rule out CVA This was conveyed to the patient via a Slovenian translation at the bedside Case discussed with hospitalist service EKG showed a sinus bradycardia at 59 beats per minutes, there is a T-wave inversion in lead V3 with no acute ST elevations Troponin is within normal limits <Shoshana Staples - Last Filed: 07/13/18 00:39> Attestations - Attestations 07/12/18 21:17 Documentation prepared by Howie Sutton, acting as manager medical for Shoshana Staples DO, MD. <Howie Sutton - Last Filed: 07/12/18 21:16>
[2018-07-12] MEDS ORDERED: LACTATED RINGERS SOLUTION 1000 ML INFUS.BAG IV ONE (21:13)
[2018-07-12] MEDS ORDERED: ONDANSETRON 4 MG/2 ML VIAL IVPUSH ONE (21:13)
[2018-07-12] MEDS ORDERED: MECLIZINE HCL 25 MG TABLET (FP) PO ONE (21:13)
[2018-07-12] MEDS ORDERED: ONDANSETRON 4 MG/2 ML VIAL ONE (21:43)
[2018-07-12] MEDS ORDERED: MECLIZINE HCL 25 MG TABLET (FP) ONE (21:43)
[2018-07-12 21:58] LABS: BASO % 0.9 % (0-2.0); EOS % 2.5 % (0-4.5); HEMATOCRIT 39.9 % (32.4-45.2); LYMPH % 34.9 % (8-40); MCH 32.5 pg (25.7-33.7); MCHC 35.1 g/dl (32.0-36.0); MEAN CELL VOLUME 92.4 fl (80-96); MEAN PLT VOLUME 8.6 fl (7.5-11.1); MONO % 6.4 % (3.8-10.2); NEUT % 55.3 % (42.8-82.8); PLATELET COUNT 241 K/MM3 (134-434); RBC 4.32 M/mm3 (3.60-5.2); RDW 12.1 % (11.6-15.6); WHITE BLOOD COUNT 9.4 K/mm3 (4.0-10.0)
[2018-07-12 22:15] LABS: URINE APPEARANCE CLEAR; URINE BILIRUBIN NEGATIVE (<2.0 mg/dL); URINE COLOR LTYELLOW; URINE GLUCOSE (UA) NEGATIVE (NEGATIVE); URINE KETONE NEGATIVE (NEGATIVE); URINE LEUK ESTERASE NEGATIVE (NEGATIVE); URINE NITRITE NEGATIVE (NEGATIVE); URINE PROTEIN NEGATIVE (NEGATIVE); URINE UROBILINOGEN NEGATIVE mg/dL (0.2-1.0)
[2018-07-12 22:27] LABS: ANION GAP 8 MMOL/L (8-16); BLOOD UREA NITROGEN 14 mg/dL (7-18); CALCIUM 9.5 mg/dL (8.5-10.1); CHLORIDE 108 mmol/L (98-107); CO2 25 mmol/L (21-32); CREATININE 0.7 mg/dL (0.55-1.3); GLUCOSE,RANDOM 89 mg/dL (74-106); SODIUM 141 mmol/L (136-145)
[2018-07-12 22:28] LABS: POTASSIUM 4.1 mmol/L (3.5-5.1)
[2018-07-13] MEDS ORDERED: ONDANSETRON 4 MG/2 ML VIAL IVPUSH PRN (00:59)
[2018-07-13] MEDS ORDERED: MECLIZINE HCL 25 MG TABLET (FP) PO PRN (00:59)
--- NOTE | 2018-07-13 01:39 | HP ---
CHIEF COMPLAINT:dizziness PCP:Dr. Amador HISTORY OF PRESENT ILLNESS: Patient is a 58 year old greek speaking female with past medical history of NIDDM, HLD and GERD, presented with worsening nausea and dizziness that started 1 week ago. Patient described her dizziness as the "room spinning around her", that occurs everytime she changes her position like sitting up or lying down. Symptoms would last for a few seconds and would resolve spontaneously if she's not moving. Three days ago, patient noted buzzing sounds on her right ear, but no hearing loss. Yesterday, her dizziness and tinnitus became more persistent, and was accompanied by nausea. She denies any fever, chills, headache, vomiting , chest pain, SOB, abdominal pain, diarrhea, urinary symptoms. Of note, patient was admitted 2 years ago for dizziness, and was discharged with vertigo. She was not prescribed any meclizine on discharge. She reportedly was referred to have her eyes, ears, and nose checked up, and everything was reported to be normal. ER course was notable for: (1)Meclizine x1, Zofran x1 (2)Head CT - no acute intracranial pathology (3) Recent Travel:denies PAST MEDICAL HISTORY: NIDDM HLD GERD PAST SURGICAL HISTORY: Excision of mass in the left mastoid area Social History: Smoking:denies Alcohol:denies Drugs: denies Family History:noncontributory Allergies fluconazole Allergy (Verified 09/14/17 12:08) Rash HOME MEDICATIONS: Home Medications Medication Instructions Recorded Atorvastatin Ca [Lipitor] 40 mg PO DAILY 11/20/16 [place]-3 Fatty Acids [[place]-3] 1,000 mg PO HS 03/08/17 metFORMIN HCL [Metformin HCl] 500 mg PO BID 09/14/17 Pantoprazole Sodium 40 mg PO DAILY 07/12/18 REVIEW OF SYSTEMS CONSTITUTIONAL: Absent: fever, chills, diaphoresis, generalized weakness, malaise, loss of appetite, weight change HEENT: Absent: rhinorrhea, nasal congestion, throat pain, throat swelling, difficulty swallowing, mouth swelling, ear pain, eye pain, visual changes CARDIOVASCULAR: Absent: chest pain, syncope, palpitations, irregular heart rate, lightheadedness , peripheral edema RESPIRATORY: Absent: cough, shortness of breath, dyspnea with exertion, orthopnea, wheezing, stridor, hemoptysis GASTROINTESTINAL: Absent: abdominal pain, abdominal distension, nausea, vomiting, diarrhea, constipation, melena, hematochezia GENITOURINARY: Absent: dysuria, frequency, urgency, hesitancy, hematuria, flank pain, genital pain MUSCULOSKELETAL: Absent: myalgia, arthralgia, joint swelling, back pain, neck pain SKIN: Absent: rash, itching, pallor HEMATOLOGIC/IMMUNOLOGIC: Absent: easy bleeding, easy bruising, lymphadenopathy, frequent infections ENDOCRINE: Absent: unexplained weight gain, unexplained weight loss, heat intolerance, cold intolerance NEUROLOGIC: Absent: headache, focal weakness or paresthesias, dizziness, unsteady gait, seizure, mental status changes, bladder or bowel incontinence PSYCHIATRIC: Absent: anxiety, depression, suicidal or homicidal ideation, hallucinations. PHYSICAL EXAMINATION Vital Signs - 24 hr 07/12/18 17:01 Temperature 98.8 F Pulse Rate 78 Respiratory 18 Rate Blood Pressure 137/71 O2 Sat by Pulse 98 Oximetry (%) GENERAL: Awake, alert, and fully oriented, in no acute distress. HEAD: Normal with no signs of trauma. EYES: PERRLA, EOMI, sclera anicteric, conjunctiva clear. EARS, NOSE, THROAT: Ears normal, oropharynx clear without exudates. Moist mucous membranes. NECK: Normal range of motion, supple without lymphadenopathy, JVD, or masses. LUNGS: Breath sounds equal, clear to auscultation bilaterally. HEART: Regular rate and rhythm, normal S1 and S2 without murmur, rub or gallop. ABDOMEN: Soft, nontender, not distended, normoactive bowel sounds. MUSCULOSKELETAL: Normal range of motion at all joints. No CVA tenderness. UPPER EXTREMITIES: 2+ pulses, warm, well-perfused. No peripheral edema. LOWER EXTREMITIES: 2+ pulses, warm, well-perfused. No peripheral edema. NEUROLOGICAL: AAOx3. Cranial nerves II-XII intact. Motor strength 5/5, sensation intact. DTRs+2. No dysmetria, no dysdiadochokinesia. Normal speech. Normal gait, Negative Romberg's. PSYCHIATRIC: Cooperative. Good eye contact. Appropriate mood and affect. SKIN: Warm, dry, normal turgor, no rashes or lesions. Laboratory Results - last 24 hr 07/12/18 07/12/18 07/12/18 21:49 21:49 22:00 WBC 9.4 RBC 4.32 Hgb 14.0 Hct 39.9 MCV 92.4 MCH 32.5 MCHC 35.1 RDW 12.1 Plt Count 241 MPV 8.6 Absolute Neuts (auto) 5.2 Neutrophils % 55.3 Lymphocytes % 34.9 Monocytes % 6.4 Eosinophils % 2.5 Basophils % 0.9 Nucleated RBC % 0 Sodium 141 Potassium 4.1 Chloride 108 H Carbon Dioxide 25 Anion Gap 8 BUN 14 Creatinine 0.7 Creat Clearance w eGFR > 60 Random Glucose 89 Calcium 9.5 Troponin I < 0.02 Urine Color Ltyellow Urine Appearance Clear Urine pH 6.0 Ur Specific Pitcher 1.013 Urine Protein Negative Urine Glucose (UA) Negative Urine Ketones Negative Urine Blood Negative Urine Nitrite Negative Urine Bilirubin Negative Urine Urobilinogen Negative Ur Leukocyte Esterase Negative ASSESSMENT/PLAN: Patient is a 58 year old greek speaking female with past medical history of NIDDM, HLD and GERD, presented with worsening nausea and dizziness that started 1 week ago. #Dizziness, likely 2/2 vertigo vs Vestibular neuritis -Head CT was negative of any acute intracranial pathology -Doppler carotid/vertebral US -Tele monitoring -Echo -Would refer for audiometry as outpatient -TSH, B12, RPR ordered -Meclizine 25mg PRN for dizziness -Zofran 4mg PRN for nausea #NIDDM -Hold Metformin -Insulin sliding scale implemented -BGM ACHS #HLD -Continue home Atorvastatin 40mg daily #FEN -Not on any standing fluids -Electrolytes wnl, routine bmp monitoring -Diabetic/sodium restricted diet #Prophylaxis -Lovenox 40mg sq daily #Disposition -full code -tele obs Visit type - Emergency Visit Emergency Visit: Yes ED Registration Date: 07/13/18 Care time: The patient presented to the Emergency Department on the above date and was hospitalized for further evaluation of their emergent condition. - New Patient This patient is new to me today: Yes Date on this admission: 07/13/18 - Critical Care Critical Care patient: No
--- NOTE | 2018-07-13 04:06 | PN ---
Teaching Attending Note Name of Resident: Shilpi Bautista ATTENDING PHYSICIAN STATEMENT I saw and evaluated the patient. I reviewed the resident's note and discussed the case with the resident. I agree with the resident's findings and plan as documented. SUBJECTIVE: Patient seen and examined; this is a 58 y/o female presenting to the ER with symptoms of dizziness. PMH as documented. She had similar symptoms when she was seen several years ago (seen here 2013, 2017 for dizziness/lightheadedness) and had vertigo diagnosed and was given meclizine from the ER. This helped her symptoms, but she no longer has it. Has the same symptoms now. No syncope. Stereotyped sx. No focal neuro deficits, chest pain, SOB, etc. She is hemodynamically stable and afebrile. She has some throat pain but denies full on systemic illness sx. She has no hearing loss but does have some tinnitus. 10 sys ROS done and negative aside from HPI PMH, PSH, Family hx, Social hx reviewed Medication list reviewed, pending reconciliation OBJECTIVE: VS, labs, imaging reviewed. Orthostatic VS pending. NAD, AAO, resting comfortably in bed NC AT EOMI PERRLA RRR s1/2 no mgr Lungs CTAB, w/ sym exp NT ND +BS CN2-12 wnl, no fnd, strength 5/5 all ext with sensorium intact. NIHSS 0. CT head negative for acute pathology EKG reviewed; telemetry pending ASSESSMENT AND PLAN: Patient presents with sx consistent with vertigo; however she does have tinnitus without hearing loss which gives rise to question of vestibular neuritis, etc. 1) Dizziness/lightheadedness with tinnitus -No hearing loss making labyrinthitis unlikely; suspect either BPV +/- vestibular neuritis. Also checking orthostatics. Starting back on meclezine and monitoring for improvement. She had a somewhat sore throat so will check swab. If it is viral, an acute viral illness could have precipitated it. Can consider inpt vs outpt neuro referral given recurring sx. We could not find a tuning fork but would be useful to have an objective rather than subjective evaluation for sensorineural hearing loss. If not improved with meclizine alone can consider adding pred -CT head negative; check echo and carotid dopplers w/ inclusion of vertebral flow (as risk factors present for cerebrovascular disease). Monitor tele. Very low suspicion of cerebellar process. 2) DM -SSI when inpatient 3) HLD -Continue home meds
[2018-07-13 06:40] LABS: BASO % 0.7 % (0-2.0); EOS % 3.5 % (0-4.5); HEMATOCRIT 38.9 % (32.4-45.2); HEMOGLOBIN 13.5 GM/dL (10.7-15.3); LYMPH % 37.8 % (8-40); MCH 31.6 pg (25.7-33.7); MCHC 34.8 g/dl (32.0-36.0); MEAN CELL VOLUME 90.8 fl (80-96); MEAN PLT VOLUME 8.4 fl (7.5-11.1); MONO % 6.9 % (3.8-10.2); NEUT % 51.1 % (42.8-82.8); PLATELET COUNT 231 K/MM3 (134-434); RBC 4.28 M/mm3 (3.60-5.2); WHITE BLOOD COUNT 7.4 K/mm3 (4.0-10.0)
[2018-07-13] MEDS: INSULIN SLIDING SCALE (NOVOLOG) 1 VIAL SQ SCH ×2 (07:04→13:05)
[2018-07-13 07:30] LABS: ANION GAP 5 MMOL/L (8-16); BLOOD UREA NITROGEN 13 mg/dL (7-18); CALCIUM 8.7 mg/dL (8.5-10.1); CHLORIDE 109 mmol/L (98-107); CO2 26 mmol/L (21-32); CREATININE 0.7 mg/dL (0.55-1.3); GLUCOSE,RANDOM 83 mg/dL (74-106); MAGNESIUM 2.4 mg/dL (1.8-2.4); PHOSPHOROUS 3.6 mg/dL (2.5-4.9); POTASSIUM 3.9 mmol/L (3.5-5.1); SODIUM 140 mmol/L (136-145)
[2018-07-13] MEDS ORDERED: PANTOPRAZOLE 40 MG TABLET (FP) PO SCH (10:00)
[2018-07-13] MEDS ORDERED: ENOXAPARIN NA (PORCINE) 40 MG/0.4 ML DISP.SYRIN SQ SCH (10:00)
--- NOTE | 2018-07-13 10:31 | EKG ---
Test Reason : Blood Pressure : / mmHG Vent. Rate : 059 BPM Atrial Rate : 059 BPM P-R Int : 168 ms QRS Dur : 080 ms QT Int : 422 ms P-R-T Axes : 064 -02 024 degrees QTc Int : 417 ms SINUS BRADYCARDIA OTHERWISE NORMAL ECG WHEN COMPARED WITH ECG OF 14-SEP-2017 18:37, NONSPECIFIC T WAVE ABNORMALITY NO LONGER EVIDENT IN ANTERIOR LEADS Confirmed by TINO RUSHING, HARRY ([id number]) on 07/13/2018 10:31:16 AM Referred By: Confirmed By:HARRY JIMÉNEZ MD
[2018-07-13 13:28] VITALS: BP 100/55; PULSE 65; TEMP 98.3
--- NOTE | 2018-07-13 13:32 | DS ---
Physical Exam: SUBJECTIVE: Patient seen and examined OBJECTIVE: Vital Signs Period Temp Pulse Resp BP Sys/Granados Pulse Ox Last 24 Hr 98 F-98.8 F 61-78 16-20 100-137/48-71 97-100 PHYSICAL EXAM GENERAL: The patient is awake, alert, and fully oriented, in no acute distress. HEAD: Normal with no signs of trauma. EYES: PERRL, extraocular movements intact, sclera anicteric, conjunctiva clear. ENT: Ears normal, nares patent, oropharynx clear without exudates, moist mucous membranes. NECK: Trachea midline, full range of motion, supple. LUNGS: Breath sounds equal, clear to auscultation bilaterally, no wheezes, no crackles, no accessory muscle use. HEART: Regular rate and rhythm, S1, S2 without murmur, rub or gallop. ABDOMEN: Soft, nontender, nondistended, normoactive bowel sounds, no guarding, no rebound, no hepatosplenomegaly, no masses. EXTREMITIES: 2+ pulses, warm, well-perfused, no edema. NEUROLOGICAL: Cranial nerves II through XII grossly intact. Normal speech, gait not observed. PSYCH: Normal mood, normal affect. SKIN: Warm, dry, normal turgor, no rashes or lesions noted. LABS CBC, BMP 07/13/18 05:30 07/13/18 05:30 HOSPITAL COURSE: Date of Admission:07/13/18 Patient admitted for dizziness. Given Meclazine and symptoms resolved. Carotid doppler indicated no evidence of stenosis. Discussed with patient to take the medication when she feels dizzy to help her. Patient stable and discharged. TSH elevated, discussed need to follow up with primary care physician. ekg: sinus bradycardia Date of Discharge: 07/13/18 Minutes to complete discharge: 35 Discharge Summary Reason For Visit: DIZZINESS Current Active Problems Dizziness (Acute) Condition: Improved - Instructions Diet, Activity, Other Instructions: You were admitted to the hospital because you were dizzy. We treated this with the medication meclizine and the dizziness got better. To treat this dizziness please continue to take: Meclizine 25 mg by mouth twice a day. Please only take the medication if you need it. While you were here you were found to have a high TSH. This number is an indication of your thyroid function. You need to follow up with your primary care physician to have your thyroid monitored. Please continue your home medications as prescribed. Please make an appointment to follow up with your primary care physician in one week. Return to the Emergency Department if you have vomiting, nausea, chest pain, shortness of breath, or headaches. En Espanol Fuiste admitido en el hospital porque estabas mareado. Tratamos esto con la medicacin meclizine y el vrtigo mejor. Para tratar cj mareo por favor contine tomando: Meclizine 25 mg por va oral dos veces al da. Por favor solo tome la medicacin si la necesita. Mientras estabas aqu, se encontr que tenas timmy TSH nikkie. Cj nmero es timmy indicacin de khalil funcin tiroidea. Debe hacer un seguimiento con khalil mdico de atencin primaria para que le monitoreen la tiroides. Por favor contine sobeida medicamentos caseros segn lo prescrito. Regina timmy palma para hacer un seguimiento con khalil mdico de atencin primaria en timmy semana. Regrese al Departamento de Emergencias si tiene vmitos, nuseas, dolor en el pecho, falta de aliento o dolor de ana. Referrals: ON STAFF,NOT [Primary Care Provider] - Disposition: HOME - Home Medications Comprehensive Discharge Medication List: Ambulatory Orders Atorvastatin Ca [Lipitor] 40 mg PO DAILY 11/20/16 [place]-3 Fatty Acids [[place]-3] 1,000 mg PO HS 03/08/17 metFORMIN HCL [Metformin HCl] 500 mg PO BID 09/14/17 Pantoprazole Sodium 40 mg PO DAILY 07/12/18 Meclizine HCl 25 mg PO BID PRN #60 tablet 07/13/18 This patient is new to me today: Yes Date on this admission: 07/13/18 Emergency Visit: Yes ED Registration Date: 07/13/18 Care time: The patient presented to the Emergency Department on the above date and was hospitalized for further evaluation of their emergent condition. Critical Care patient: No - Discharge Referral Referred to [facility] Med [facility] No
--- NOTE | 2018-07-13 17:55 | PN ---
Teaching Attending Note Name of Resident: Shelly Parrish ATTENDING PHYSICIAN STATEMENT I saw and evaluated the patient. I reviewed the resident's note and discussed the case with the resident. I agree with the resident's findings and plan as documented. SUBJECTIVE: Feels well - dizziness resolved. Denies headache/visual disturbance. No nausea/vomiting. OBJECTIVE: Afebrile, Hemodynamically Stable. Last Vital Signs Temp Pulse Resp BP Pulse Ox 98.3 F 65 18 100/55 L 99 07/13/18 13:27 07/13/18 13:27 07/13/18 13:07/13/18 13:07/13/18 13:28 HEENT - Atraumatic, Normocephalic Heart - S1, S2, RRR Lungs - clear to auscultation Abdomen - soft, non-tender. Bowel Sounds normal. Extremities - no edema, no calf tenderness Neuro - AAO x 3. EOMI. SELAM. Tone/Power normal all 4 extremities. Laboratory Results - last 24 hr 07/12/18 07/12/18 07/12/18 21:49 21:49 22:00 WBC 9.4 RBC 4.32 Hgb 14.0 Hct 39.9 MCV 92.4 MCH 32.5 MCHC 35.1 RDW 12.1 Plt Count 241 MPV 8.6 Absolute Neuts (auto) 5.2 Neutrophils % 55.3 Lymphocytes % 34.9 Monocytes % 6.4 Eosinophils % 2.5 Basophils % 0.9 Nucleated RBC % 0 Sodium 141 Potassium 4.1 Chloride 108 H Carbon Dioxide 25 Anion Gap 8 BUN 14 Creatinine 0.7 Creat Clearance w eGFR > 60 POC Glucometer Random Glucose 89 Hemoglobin A1c % Calcium 9.5 Phosphorus Magnesium Troponin I < 0.02 Vitamin B12 TSH Urine Color Ltyellow Urine Appearance Clear Urine pH 6.0 Ur Specific Warden 1.013 Urine Protein Negative Urine Glucose (UA) Negative Urine Ketones Negative Urine Blood Negative Urine Nitrite Negative Urine Bilirubin Negative Urine Urobilinogen Negative Ur Leukocyte Esterase Negative RPR Titer 07/13/18 07/13/18 07/13/18 05:30 05:30 05:30 WBC 7.4 RBC 4.28 Hgb 13.5 Hct 38.9 MCV 90.8 MCH 31.6 MCHC 34.8 RDW 12.0 Plt Count 231 MPV 8.4 Absolute Neuts (auto) 3.8 Neutrophils % 51.1 Lymphocytes % 37.8 Monocytes % 6.9 Eosinophils % 3.5 Basophils % 0.7 Nucleated RBC % 0 Sodium 140 Potassium 3.9 Chloride 109 H Carbon Dioxide 26 Anion Gap 5 L BUN 13 Creatinine 0.7 Creat Clearance w eGFR > 60 POC Glucometer Random Glucose 83 Hemoglobin A1c % Calcium 8.7 Phosphorus 3.6 Magnesium 2.4 Troponin I Vitamin B12 921 TSH 6.77 H Urine Color Urine Appearance Urine pH Ur Specific Warden Urine Protein Urine Glucose (UA) Urine Ketones Urine Blood Urine Nitrite Urine Bilirubin Urine Urobilinogen Ur Leukocyte Esterase RPR Titer Nonreactive 07/13/18 07/13/18 07/13/18 07:00 07:01 11:33 WBC RBC Hgb Hct MCV MCH MCHC RDW Plt Count MPV Absolute Neuts (auto) Neutrophils % Lymphocytes % Monocytes % Eosinophils % Basophils % Nucleated RBC % Sodium Potassium Chloride Carbon Dioxide Anion Gap BUN Creatinine Creat Clearance w eGFR POC Glucometer 86 88 Random Glucose Hemoglobin A1c % 5.8 Calcium Phosphorus Magnesium Troponin I Vitamin B12 TSH Urine Color Urine Appearance Urine pH Ur Specific Warden Urine Protein Urine Glucose (UA) Urine Ketones Urine Blood Urine Nitrite Urine Bilirubin Urine Urobilinogen Ur Leukocyte Esterase RPR Titer Home Medications Medication Instructions Recorded Atorvastatin Ca [Lipitor] 40 mg PO DAILY 11/20/16 [place]-3 Fatty Acids [Ow[place]-3] 1,000 mg PO HS 03/08/17 metFORMIN HCL [Metformin HCl] 500 mg PO BID 09/14/17 Pantoprazole Sodium 40 mg PO DAILY 07/12/18 Meclizine HCl 25 mg PO BID PRN #60 tablet 07/13/18 ASSESSMENT/PLAN 58 year old female with HLD, DM 2, GERD, history of BPV, presented to ED with dizziness, now appears to be resolved s/p Meclizine. 1. Dizziness secondary to BPV - resolved. 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 Improved with Meclizine. No gait disturbance Medically Stable for discharge with Meclizine prn. 2. DM 2 - resume Metformin on discharge. 3. HLD - Continue Lipitor 4. GERD - Continue PPI. 5. Elevated TSH, no history of hypothyroidism - for free T4 measurement and follow up with PCP as out-patient. Neurologically/Medically Stable for discharge.
[2018-07-13] MEDS ORDERED: OMEGA-3 ACID ETHYL ESTERS (FATTY-ACIDS) 1 GM CAPSULE (FP) PO SCH (22:00)
[2018-07-13] MEDS ORDERED: ATORVASTATIN CA 40 MG TABLET (FP) PO SCH (22:00)
--- NOTE | 2018-07-14 08:13 | ECHO ---
Name: ALLI NAGY Exam:Adult Echocardiogram Study Date: 07/13/2018 10:50 AM Age: 58 yrs Reason For Study: DIZZINESS Height: 64 in Weight: 150 lb BSA: 1.7 m2 MMode/2D Measurements & Calculations IVSd: 0.68 cm ACS: 2.1 cm LVIDd: 5.3 cm LVIDs: 3.4 cm LVPWd: 0.89 cm IVSs: 0.74 cm LVPWs: 1.4 cm EDV(Teich): 132.6 ml ESV(Teich): 49.0 ml Doppler Measurements & Calculations MV E max jose: 55.3 cm/sec Ao V2 max: 110.1 cm/sec MV A max jose: 66.9 cm/sec Ao max P.9 mmHg MV E/A: 0.83 Ao V2 mean: 69.1 cm/sec Ao mean P.2 mmHg Ao V2 VTI: 21.4 cm TR max jose: 181.1 cm/sec PI end-d jose: 62.4 cm/sec TR max P.3 mmHg Med Peak E' Jose: 5.1 cm/sec Med E/e': 10.9 Lat Peak E' Jose: 6.3 cm/sec Lat E/e': 8.7 Procedure A two-dimensional transthoracic echocardiogram with color flow and Doppler was performed. Left Ventricle The left ventricular size, thickness and function are normal. The left ventricular ejection fraction is normal. E/A reversal consistent with but not diagnostic of poor LV compliance. The left ventricular w all motion is normal. Right Ventricle The right ventricle is grossly normal size. Atria The left atrium is not well visualized. Right atrium not well visualized. Mitral Valve There is mild mitral valve thickening. There is no mitral valve stenosis. There is mild mitral regurg itation. Tricuspid Valve There is mild tricuspid valve thickening. There is no tricuspid stenosis. There is mild tricuspid regurgitation. Right ventricular systolic pressure is normal. Pulmonic Valve The pulmonic valve is not well visualized. There is no pulmonic valvular stenosis. Mild pulmonic valv ular regurgitation. Great Vessels The aortic root is not well visualized. Pericardium/Pleura There is no pericardial effusion. Interpretation Summary The left ventricular size, thickness and function are normal The left ventricular ejection fraction is normal. The left ventricular wall motion is normal. There is mild mitral regurgitation. There is mild tricuspid regurgitation. Right ventricular systolic pressure is normal. E/A reversal consistent with but not diagnostic of poor LV compliance MD Osmel Cabrera 07/13/2018 12:55 PM
== END 2018-07-13 13:40 | disposition home or self-care (01) ==
LOC: JER 16:47 → JERBED 07-13 00:34
PROVIDERS: ADMIT Internal Medicine
PROC: 3E033GC Introduction of Other Therapeutic Substance into Peripheral Vein, Percutaneous Approach (ICD-10-PCS; principal; 2018-07-13)
PROC: 3E0337Z Introduction of Electrolytic and Water Balance Substance into Peripheral Vein, Percutaneous Approach (ICD-10-PCS; 2018-07-13)
PROC: 3E013GC Introduction of Other Therapeutic Substance into Subcutaneous Tissue, Percutaneous Approach (ICD-10-PCS; 2018-07-13)
DX: R42 Dizziness and giddiness (principal); E78.5 Hyperlipidemia, unspecified; E11.9 Type 2 diabetes mellitus without complications; K29.70 Gastritis, unspecified, without bleeding; Z79.84 Long term (current) use of oral hypoglycemic drugs
CPT/HCPCS: 36415; 70450-TC; 80048; 81003; 82607; 82962; 83036; 83735; 84100; 84443; 84484; 85025; 86593; 87086; 93005; 93010; 93306-TC; 93880-TC; 96372; 96374; 99284-25; G0378

== ENCOUNTER 2018-11-04 12:46 | Emergency (ER) | payer OTHER ==
[2018-11-04 12:53] VITALS: BP 111/53; PULSE 80; TEMP 98.5; BMI 24.0
--- NOTE | 2018-11-04 12:53 | PDOC ---
Rapid Medical Evaluation Time Seen by Provider: 11/04/18 12:50 Medical Evaluation: Allergies Allergy/AdvReac Type Severity Reaction Status Date / Time fluconazole Allergy Rash Verified 09/14/17 12:08 11/04/18 12:50 I have performed a brief in-person evaluation of this patient. The patient presents with a chief complaint of: cough w/ sore throat x 1 week. H /o HLD, metformin, GERD Pertinent physical exam findings:stable w/ unremarkable exam I have ordered the following:nothing The patient will proceed to the ED for further evaluation. Discharge Disposition - Diagnosis URI (upper respiratory infection) Qualifiers: URI type: unspecified viral URI Qualified Code(s): J06.9 - Acute upper respiratory infection, unspecified - Referrals - Patient Instructions - Post Discharge Activity
[2018-11-04] MEDS ORDERED: ALBUTEROL SO4 2.5/IPRATROPIUM 0.5 INH SOL 3 ML VIAL.NEB. NEB ONE ×2 (13:31→13:39)
[2018-11-04] MEDS ORDERED: ACETAMINOPHEN 325 MG TABLET (FP) PO ONE (13:31)
[2018-11-04] MEDS ORDERED: ACETAMINOPHEN 325 MG TABLET (FP) ONE (13:39)
--- NOTE | 2018-11-04 14:26 | PDOC ---
History of Present Illness - General Chief Complaint: Pain, Acute Stated Complaint: THROAT PAIN Time Seen by Provider: 11/04/18 12:50 - History of Present Illness Initial Comments: 11/04/18 19:20 58 years old with past medical history significant for hypertension diabetes presents to the ED with runny nose earache cough nonproductive and sore throat Symptoms are mild to moderate persistent constant no exacerbating or alleviating factors. Past History - Past Medical History Allergies/Adverse Reactions: Allergies Allergy/AdvReac Type Severity Reaction Status Date / Time fluconazole Allergy Rash Verified 09/14/17 12:08 Home Medications: Ambulatory Orders Atorvastatin Ca [Lipitor] 40 mg PO DAILY 11/20/16 [place]-3 Fatty Acids [[place]-3] 1,000 mg PO HS 03/08/17 metFORMIN HCL [Metformin HCl] 500 mg PO BID 09/14/17 Pantoprazole Sodium 40 mg PO DAILY 07/12/18 Meclizine HCl 25 mg PO BID PRN #60 tablet 07/13/18 COPD: No Diabetes: Yes (PRE) Disorders: Yes (GASTRITIS) Hypercholesterolemia: Yes - Surgical History Gastric Stapling: No - Immunization History Immunization Up to Date: Yes - Suicide/Smoking/Psychosocial Hx Smoking Status: No Smoking History: Never smoked Have you smoked in the past 12 months: No Number of Cigarettes Smoked Daily: 0 Hx Alcohol Use: No Drug/Substance Use Hx: No Substance Use Type: None Review of Systems - Review of Systems Comments:: 11/04/18 19:20 ROS: A complete review of 10 out of 10 review of systems is taken and is negative apart from what is previously mentioned below and in the HPI. Is the patient limited Sinhala proficient: No *Physical Exam - Vital Signs Last Vital Signs Temp Pulse Resp BP Pulse Ox 98.5 F 80 18 111/53 L 98 11/04/18 12:51 11/04/18 12:51 11/04/18 12:51 11/04/18 12:51 11/04/18 12:51 - Physical Exam Comments: 11/04/18 19:21 Vitals: Triage Vital signs reviewed General Appearance: no acute distress, well nourished well developed, Head: Atraumatic, Eyes: Pupils equal reactive round, extraocular movement intact Ears: TM's normal bilaterally; Nose: Nares patent bilaterally;no nasal congestion Throat: Posterior oropharynx with mild erythema, mucous membranes moist, Neck: Supple;No Nucal rigidity Chest Wall: Nontender Cardiac: Regular rate and rhythym, no murmurs, no rubs, no gallops, Lungs: Clear to auscultation bilateral, good air movement bilaterally, Abdomen: Soft, non distended, normal bowel sounds, non tender to palpation Extremities: Full range of motion to all extremities, no cyanosis, clubbing, or edema Skin: Warm and dry, no rashes or lesions, no rash, no petechiae Psych: normal mood, normal affect ED Treatment Course - Medications Given in the ED: ED Medications Discontinued Medications Generic Name Dose Route Start Last Admin Trade Name Gonsaloq PRN Reason Stop Dose Admin Acetaminophen 650 mg 11/04/18 13:31 11/04/18 13:45 Tylenol - PO 11/04/18 13:32 650 mg ONCE ONE Administration Albuterol/Ipratropium 1 amp 11/04/18 13:31 11/04/18 13:45 Duoneb - NEB 11/04/18 13:32 1 amp ONCE ONE Administration Medical Decision Making - Medical Decision Making 11/04/18 14:20 WA NAD, History and exam consistent with Viral URI, Rapid Strep neg. Will recommend tylenol motrin and OTC cough suppressant. Findings, the need for followup and strict return instructions d/w patient *DC/Admit/Observation/Transfer Diagnosis at time of Disposition: URI (upper respiratory infection) Qualifiers: URI type: unspecified viral URI Qualified Code(s): J06.9 - Acute upper respiratory infection, unspecified - Discharge Dispostion Disposition: HOME Condition at time of disposition: Fair Decision to Admit order: No - Referrals - Patient Instructions Printed Discharge Instructions: Common Cold Additional Instructions: Follow with your doctor in 2-3 days if no improvement in symptoms. Return to the ED for any severe worsening symptoms. Alternate over the counter tylenol and motrin every three hours as needed for throat pain. Take an over the counter cough suppresant and needed as directed on package. - Post Discharge Activity
== END 2018-11-04 14:38 | disposition home or self-care (01) ==
LOC: JERFT 12:46
PROC: 3E0F7GC Introduction of Other Therapeutic Substance into Respiratory Tract, Via Natural or Artificial Opening (ICD-10-PCS; principal; 2018-11-04)
DX: J06.9 Acute upper respiratory infection, unspecified (principal); B97.89 Other viral agents as the cause of diseases classified elsewhere; I10 Essential (primary) hypertension; E11.9 Type 2 diabetes mellitus without complications; Z79.84 Long term (current) use of oral hypoglycemic drugs
CPT/HCPCS: 87070; 87077; 87880; 94640; 99282-25

== ENCOUNTER 2018-12-13 17:38 | Emergency (ER) | payer OTHER ==
[2018-12-13 17:44] VITALS: BP 117/69; PULSE 91; TEMP 99.1; BMI 32.5
[2018-12-13] MEDS ORDERED: DEXAMETHASONE LIQUID 0.5 MG/5 ML 240 ML BULK BOTTLE PO ONE (17:44)
[2018-12-13] MEDS ORDERED: KETOROLAC TROMETHAMINE 30 MG/1 ML VIAL IM ONE (17:44)
--- NOTE | 2018-12-13 17:44 | PDOC ---
Rapid Medical Evaluation Time Seen by Provider: 12/13/18 17:40 Medical Evaluation: Allergies Allergy/AdvReac Type Severity Reaction Status Date / Time fluconazole Allergy Rash Verified 09/14/17 12:08 12/13/18 17:40 I have performed a brief in-person evaluation of this patient. The patient presents with a chief complaint of: sore throat x4 days Pertinent physical exam findings: VSS. AF. OP- erythematous with exudate present. Uvula midline. I have ordered the following: rapid strep, decadron, toradol The patient will proceed to the ED for further evaluation. Discharge Disposition - Diagnosis Pharyngitis - Referrals - Patient Instructions - Post Discharge Activity
[2018-12-13] MEDS ORDERED: DEXAMETHASONE SOD PHOSPHATE 10 MG/1 ML VIAL ONE (17:59)
[2018-12-13] MEDS ORDERED: KETOROLAC TROMETHAMINE 30 MG/1 ML VIAL ONE (18:00)
--- NOTE | 2018-12-13 19:56 | PDOC ---
History of Present Illness - General Chief Complaint: Head/Neck problem Stated Complaint: THOART AND NECK PAIN Time Seen by Provider: 12/13/18 17:40 - History of Present Illness Initial Comments: 12/13/18 19:53 58-year-old female with a past medical history significant for diabetes presents for evaluation of sore throat 4 days Past History - Past Medical History Allergies/Adverse Reactions: Allergies Allergy/AdvReac Type Severity Reaction Status Date / Time fluconazole Allergy Rash Verified 12/13/18 17:40 Home Medications: Ambulatory Orders Atorvastatin Ca [Lipitor] 40 mg PO DAILY 11/20/16 Dar[place]-3 Fatty Acids [Darling-3] 1,000 mg PO HS 03/08/17 metFORMIN HCL [Metformin HCl] 500 mg PO BID 09/14/17 Pantoprazole Sodium 40 mg PO DAILY 07/12/18 Meclizine HCl 25 mg PO BID PRN #60 tablet 07/13/18 COPD: No Diabetes: Yes (PRE) Disorders: Yes (GASTRITIS) Hypercholesterolemia: Yes - Surgical History Gastric Stapling: No - Immunization History Immunization Up to Date: Yes - Suicide/Smoking/Psychosocial Hx Smoking Status: No Smoking History: Never smoked Have you smoked in the past 12 months: No Number of Cigarettes Smoked Daily: 0 Hx Alcohol Use: No Drug/Substance Use Hx: No Substance Use Type: None Review of Systems - Review of Systems Constitutional: Yes: Fever HEENTM: Yes: Throat Pain, Difficulty Swallowing *Physical Exam - Vital Signs Last Vital Signs Temp Pulse Resp BP Pulse Ox 99.1 F 91 H 18 117/69 98 12/13/18 17:41 12/13/18 17:41 12/13/18 17:41 12/13/18 17:41 12/13/18 17:41 - Physical Exam Comments: 12/13/18 19:54 HEAD: NC/AT EYES: Conjuntiva clear Ears: Canals and TM's normal NOSE: No d/c THROAT: Moist mucous membrances, oral pharanx erythemic without exudate, uvula midline NECK: Supple without adenopathy CARDIAC: S1 S2 LUNGS: CTA Full and Equal breath sounds ABDOMEN: Soft NT ND MS: Full ROM in all joints without edema NEUROLOGIC: No gross sensory or motor deficits, NVID SKIN: Normal color and temperature no lesions or rashes ED Treatment Course - Medications Given in the ED: ED Medications Discontinued Medications Generic Name Dose Route Start Last Admin Trade Name Dariusz PRN Reason Stop Dose Admin Dexamethasone 10 mg 12/13/18 17:44 12/13/18 18:02 Decadron Liquid - PO 12/13/18 17:45 10 mg ONCE ONE Administration Ketorolac Tromethamine 30 mg 12/13/18 17:44 12/13/18 18:02 Toradol Injection - IM 12/13/18 17:45 30 mg ONCE ONE Administration Medical Decision Making - Medical Decision Making 12/13/18 19:54 Most likely a viral pharyngitis, we'll hold off on antibiotics for now and wait for culture *DC/Admit/Observation/Transfer Diagnosis at time of Disposition: Pharyngitis, Viral pharyngitis - Discharge Dispostion Disposition: HOME Condition at time of disposition: Stable Decision to Admit order: No - Referrals Referrals: Sandra Wilkinson MD [Staff Physician] - - Patient Instructions Printed Discharge Instructions: Viral Pharyngitis, DI for Viral Pharyngitis Additional Instructions: Return to the emergency room for worsening symptoms. Rapid strep test today was negative she did require antibiotics we will call you. Follow-up with internal medicine in 1-2 days without fail for further evaluation and treatment options. - Post Discharge Activity
== END 2018-12-13 19:59 | disposition home or self-care (01) ==
LOC: JERFT 17:38
PROC: 3E0233Z Introduction of Anti-inflammatory into Muscle, Percutaneous Approach (ICD-10-PCS; principal; 2018-12-13)
DX: J02.9 Acute pharyngitis, unspecified (principal); B97.89 Other viral agents as the cause of diseases classified elsewhere; E11.9 Type 2 diabetes mellitus without complications; Z79.84 Long term (current) use of oral hypoglycemic drugs; E78.00 Pure hypercholesterolemia, unspecified; Z87.19 Personal history of other diseases of the digestive system
CPT/HCPCS: 87070; 87880; 96372; 99282-25

== ENCOUNTER 2019-05-10 09:35 | Emergency (ER) | payer OTHER ==
--- NOTE | 2019-05-10 09:46 | PDOC ---
History of Present Illness - General Chief Complaint: Sore Throat Stated Complaint: BODY ACHES, SORE THROAT Time Seen by Provider: 05/10/19 09:43 - History of Present Illness Initial Comments: 05/10/19 09:45 CHIEF COMPLAINT: sore throat, fever HISTORY OF PRESENT ILLNESS: 59 yo F with hx of diabetes( on metformin), gastritis, hyperlipidemia, and GERD presents to ED with sore throat, body aches , cough, and fever since yesterday. Patient denies any nausea, vomiting, diarrhea. Patient replies her grandson has had similar symptoms since yesterday as well. No recent travel or sick contacts. PAST MEDICAL HISTORY: NIDDM, gastritis, HLD, GERD FAMILY HISTORY: Denies SOCIAL HISTORY:Denies tobacco, alcohol, illicit drug use. SURGICAL HISTORY: Denies ALLERGIES: No known drug allergies REVIEW OF SYSTEMS General/Constitutional: Subjective fever. Denies weakness, weight change. HEENT: Denies change in vision. Denies ear pain or discharge. Denies sore throat. Cardiovascular: Denies chest pain or shortness of breath. Respiratory: Cough since yesterday. Denies wheezing, or hemoptysis. Gastrointestinal: Denies nausea, vomiting, diarrhea or constipation. Denies rectal bleeding. Genitourinary: Denies dysuria, frequency, or change in urination. Musculoskeletal: Generalized body aches. Skin and breasts: Denies rash or easy bruising. Neurologic: Denies headache, vertigo, loss of consciousness, or loss of sensation. PHYSICAL EXAM General Appearance: Well-appearing, appropriately dressed. No apparent distress. HEENT: EOMI, PERRLA, normal ENT inspection, normal voice, TMs normal, pharynx normal. No conjunctival pallor. No photophobia, scleral icterus. Neck: Supple. Trachea midline. No tenderness, rigidity, carotid bruit, stridor , lymphadenopathy, or thyromegaly. Respiratory/Chest: Lungs CTAB. No shortness of breath, chest tenderness, respiratory distress, accessory muscle use. No crackles, rales, rhonchi, stridor , wheezing, dullness Cardiovascular: RRR. S1, S2. No JVD, murmur, bradycardia, tachycardia. Vascular Pulses: Dorsalis-Pedis (R): 2+, Dorsalis-Pedis (L): 2+ Gastrointestinal/Abdominal: Normal bowel sounds. Abdomen soft, non-distended. No tenderness or rebound tenderness. No organomegaly, pulsatile mass, guarding , hernia, hepatomegaly, splenomegaly. Lymphatic: No adenopathy, tenderness. Musculoskeletal/Extremities: Normal inspection. FROM of all extremities, normal capillary refill. Pelvis Stable. No CVA tenderness. No tenderness to extremities, pedal edema, swelling, erythema or deformity. Integumentary: Appropriate color, dry, warm. No cyanosis, erythema, jaundice or rash Neurologic: overedge sewer II-XII intact. Fully oriented, alert. Appropriate mood/affect. Motor strength 5/5. No appreciable EOM palsy, facial droop or sensory deficit. Past History - Past Medical History Allergies/Adverse Reactions: Allergies Allergy/AdvReac Type Severity Reaction Status Date / Time fluconazole Allergy Rash Verified 05/10/19 09:41 Home Medications: Ambulatory Orders Atorvastatin Ca [Lipitor] 40 mg PO DAILY 11/20/16 [place]-3 Fatty Acids [[place]-3] 1,000 mg PO HS 03/08/17 metFORMIN HCL [Metformin HCl] 500 mg PO BID 09/14/17 Pantoprazole Sodium 40 mg PO DAILY 07/12/18 Amoxicillin - [Amoxicillin 500mg Capsule -] 500 mg PO BID #14 capsule 05/10/19 Benzonatate [Tessalon Pearls -] 100 mg PO TID #21 capsule 05/10/19 Ibuprofen 600 mg PO TID #30 tablet 05/10/19 Pseudoephedrine HCl [Pseudoephedrine ER] 120 mg PO BID #20 tablet.er 05/10/19 COPD: No Diabetes: Yes (PRE) Disorders: Yes (GASTRITIS) Hypercholesterolemia: Yes - Surgical History Gastric Stapling: No - Immunization History Immunization Up to Date: Yes - Psycho Social/Smoking Cessation Hx Smoking Status: No Smoking History: Never smoked Have you smoked in the past 12 months: No Number of Cigarettes Smoked Daily: 0 Information on smoking cessation initiated: No Hx Alcohol Use: No Drug/Substance Use Hx: No Substance Use Type: None *Physical Exam - Vital Signs Last Vital Signs Temp Pulse Resp BP Pulse Ox 100 F H 98 H 17 129/71 100 05/10/19 09:39 05/10/19 09:39 05/10/19 09:39 05/10/19 09:39 05/10/19 09:39 Medical Decision Making - Medical Decision Making 05/10/19 10:51 59 yo F with hx of diabetes( on metformin), gastritis, hyperlipidemia, and GERD presents to ED with sore throat, body aches, cough, and fever since yesterday. -flu -Motrin 05/10/19 13:03 flu negative temp 102.9 despite Motrin. Tylenol given. -rapid strep Patient afebrile after admin of Tylenol. strep positive. Clinical presentation consistent with acute viral URI and strep throat. -amox -tessalon perles -sudafed Advised patient to take medication as prescribed and follow up with PCP within one week. Advised patient of signs and symptoms for return to ED. Patient verbalized understanding and agrees to plan. Discharge - Discharge Information Problems reviewed: Yes Clinical Impression/Diagnosis: Strep sore throat Upper respiratory infection Qualifiers: URI type: unspecified viral URI Qualified Code(s): J06.9 - Acute upper respiratory infection, unspecified Condition: Stable Disposition: HOME - Admission No - Additional Discharge Information Prescriptions: Amoxicillin - [Amoxicillin 500mg Capsule -] 500 mg PO BID #14 capsule Benzonatate [Tessalon Pearls -] 100 mg PO TID #21 capsule Ibuprofen 600 mg PO TID #30 tablet Pseudoephedrine HCl [Pseudoephedrine ER] 120 mg PO BID #20 tablet.er - Follow up/Referral Referrals: Alexander Chao MD [Staff Physician] - - Patient Discharge Instructions Patient Printed Discharge Instructions: DI for Strep Throat, DI for Viral Upper Respiratory Infection -- Adult Additional Instructions: Please use medications as prescribed. As discussed, please get plenty of rest and drink lots of fluids to help break up any secretions. Follow up with your primary care doctor if symptoms persist past 5-7 days. If you develop any fever or chills unrelieved by Motrin or Tylenol, persistent vomiting or diarrhea, shortness of breath unrelieved by your inhaler, or any new or worsening symptoms , please return to the ER. Print Language: ALBANIAN - Post Discharge Activity
[2019-05-10 09:47] VITALS: BP 129/71; PULSE 98; BMI 32.5
[2019-05-10] MEDS ORDERED: IBUPROFEN 600 MG TABLET (FP) PO ONE ×2 (09:47→10:26)
[2019-05-10] MEDS ORDERED: ACETAMINOPHEN 500 MG TABLET (FP) PO ONE (11:10)
[2019-05-10] MEDS ORDERED: ACETAMINOPHEN 500 MG TABLET (FP) ONE (11:12)
[2019-05-10 11:15] VITALS: TEMP 102.9
== END 2019-05-10 13:07 | disposition home or self-care (01) ==
LOC: JERFT 09:35
DX: J02.0 Streptococcal pharyngitis (principal); B95.0 Streptococcus, group A, as the cause of diseases classified elsewhere; J06.9 Acute upper respiratory infection, unspecified; E11.9 Type 2 diabetes mellitus without complications; Z79.84 Long term (current) use of oral hypoglycemic drugs; E78.5 Hyperlipidemia, unspecified; K21.9 Gastro-esophageal reflux disease without esophagitis; Z88.1 Allergy status to other antibiotic agents
CPT/HCPCS: 71046-TC-FY; 87804; 87880; 99282-25

== ENCOUNTER 2021-03-02 13:38 | Emergency (ER) | payer OTHER ==
[2021-03-02 13:53] VITALS: TEMP 97; BMI 33.9
[2021-03-02] MEDS ORDERED: ASPIRIN 81 MG CHEWABLE TABLETS ONE (14:46)
[2021-03-02] MEDS ORDERED: ASPIRIN 81 MG CHEWABLE TABLETS PO ONE (14:58)
[2021-03-02] MEDS ORDERED: LACTATED RINGERS SOLUTION 1000 ML INFUS.BAG IV ONE (15:05)
[2021-03-02] MEDS ORDERED: SUCRALFATE 1 GM TABLET (FP) PO ONE (15:05)
[2021-03-02] MEDS ORDERED: FAMOTIDINE 20 MG/50 ML IVPB 20 MG/50 ML MG IVPB ONE ×2 (15:05→15:26)
[2021-03-02] MEDS ORDERED: MAG HYDROX/AL HYDROX/SIMETH 30 ML UNIT-DOSE CUP PO ONE (15:05)
[2021-03-02] MEDS ORDERED: SUCRALFATE 1 GM TABLET (FP) ONE (15:26)
[2021-03-02] MEDS ORDERED: MAG HYDROX/AL HYDROX/SIMETH 30 ML UNIT-DOSE CUP ONE (15:26)
[2021-03-02 15:30] LABS: EOS % 2.7 % (0-4.5); HEMATOCRIT 38.8 % (32.4-45.2); HEMOGLOBIN 13.5 GM/dL (10.7-15.3); LYMPH % 29.1 % (8-40); MCH 31.5 pg (25.7-33.7); MCHC 34.8 g/dl (32.0-36.0); MEAN CELL VOLUME 90.4 fl (80-96); MEAN PLT VOLUME 8.1 fl (7.5-11.1); MONO % 8.4 % (3.8-10.2); NEUT % 58.8 % (42.8-82.8); PLATELET COUNT 242 10^3/uL (134-434); RDW 12.5 % (11.6-15.6)
[2021-03-02 15:44] LABS: CHLORIDE 108 mmol/L (98-107); SODIUM 140 mmol/L (136-145)
[2021-03-02 15:48] LABS: ALBUMIN 3.6 g/dl (3.4-5.0); ANION GAP 8 MMOL/L (8-16); BLOOD UREA NITROGEN 12.4 mg/dL (7-18); CO2 24 mmol/L (21-32)
[2021-03-02 15:50] LABS: SGOT/AST 22 U/L (15-37); SGPT/ALT 33 U/L (13-61)
[2021-03-02 15:51] LABS: CREATININE 0.7 mg/dL (0.55-1.3)
[2021-03-02 15:53] LABS: BILIRUBIN,TOTAL 0.4 mg/dL (0.2-1); TOT PROT 7.7 g/dl (6.4-8.2)
[2021-03-02 15:54] LABS: ALK PHOS 73 U/L (45-117)
[2021-03-02 15:58] LABS: GLUCOSE,RANDOM 94 mg/dL (74-106)
[2021-03-02] MEDS ORDERED: ACETAMINOPHEN 500 MG TABLET (FP) PO ONE (21:49)
[2021-03-02] MEDS ORDERED: ACETAMINOPHEN 325 MG TABLET (FP) ONE (21:55)
[2021-03-02] MEDS ORDERED: METOCLOPRAMIDE HCL INJECTION 10 MG/2 ML VIAL IVPUSH ONE (23:17)
[2021-03-02] MEDS ORDERED: PROCHLORPERAZINE MALEATE 5 MG TABLET PO ONE (23:25)
[2021-03-02] MEDS ORDERED: PROCHLORPERAZINE MALEATE 5 MG TABLET ONE (23:39)
[2021-03-03 00:38] VITALS: BP 133/69; PULSE 60
== END 2021-03-03 00:40 | disposition home or self-care (01) ==
LOC: JER 13:38
PROC: 3E033NZ Introduction of Analgesics, Hypnotics, Sedatives into Peripheral Vein, Percutaneous Approach (ICD-10-PCS; principal; 2021-03-02)
PROC: 3E033GC Introduction of Other Therapeutic Substance into Peripheral Vein, Percutaneous Approach (ICD-10-PCS; 2021-03-02)
DX: R07.9 Chest pain, unspecified (principal)
CPT/HCPCS: 36415; 71045-TC-FY; 80053; 84484; 85025; 93005; 93010; 99284-25; C9803; U0003; U0005

== ENCOUNTER 2021-06-30 10:27 | Observation (INO) | payer OTHER ==
[2021-06-30] MEDS ORDERED: ASPIRIN 81 MG CHEWABLE TABLETS PO ONE (11:42)
[2021-06-30] MEDS ORDERED: ACETAMINOPHEN 500 MG TABLET (FP) PO ONE (11:42)
[2021-06-30 12:31] LABS: BASO % 1.1 % (0-2.0); EOS % 2.3 % (0-4.5); HEMATOCRIT 38.5 % (32.4-45.2); HEMOGLOBIN 13.2 GM/dL (10.7-15.3); LYMPH % 28.7 % (8-40); MCH 31.2 pg (25.7-33.7); MCHC 34.3 g/dl (32.0-36.0); MEAN CELL VOLUME 90.7 fl (80-96); MEAN PLT VOLUME 8.4 fl (7.5-11.1); MONO % 6.7 % (3.8-10.2); NEUT % 61.2 % (42.8-82.8); PLATELET COUNT 213 10^3/uL (134-434); RBC 4.24 M/mm3 (3.60-5.2); RDW 12.1 % (11.6-15.6); WHITE BLOOD COUNT 7.4 K/mm3 (4.0-10.0)
[2021-06-30 12:44] LABS: INR 1.09 (0.83-1.09); PROTHROMBIN TIME (PATIENT) 12.6 SEC (9.7-13.0)
[2021-06-30 12:49] LABS: ALBUMIN 3.9 g/dl (3.4-5.0); CALCIUM 9.2 mg/dL (8.5-10.1)
[2021-06-30 12:50] LABS: BLOOD UREA NITROGEN 20.2 mg/dL (7-18)
[2021-06-30 12:52] LABS: CREATININE 0.8 mg/dL (0.55-1.3)
[2021-06-30 12:54] LABS: BILIRUBIN,TOTAL 0.4 mg/dL (0.2-1); TOT PROT 7.6 g/dl (6.4-8.2)
[2021-06-30] MEDS ORDERED: IBUPROFEN 400 MG TABLET (FP) PO ONE ×2 (14:03→14:38)
[2021-06-30] MEDS ORDERED: ASPIRIN 81 MG CHEWABLE TABLETS ONE (14:07)
[2021-06-30] MEDS ORDERED: ACETAMINOPHEN 325 MG TABLET (FP) ONE (14:37)
[2021-06-30] MEDS ORDERED: ACETAMINOPHEN 1000 MG/100 ML BAG IVPB PRN (14:47)
[2021-06-30] MEDS ORDERED: ATORVASTATIN CA 20 MG TABLET (FP) PO SCH (22:00)
[2021-06-30 22:28] LABS: URINE APPEARANCE CLEAR; URINE BILIRUBIN NEGATIVE (NEGATIVE); URINE COLOR YELLOW; URINE GLUCOSE (UA) NEGATIVE (NEGATIVE); URINE KETONE TRACE (NEGATIVE); URINE LEUK ESTERASE NEGATIVE (NEGATIVE); URINE NITRITE NEGATIVE (NEGATIVE); URINE PROTEIN NEGATIVE (NEGATIVE)
[2021-07-01] MEDS: PANTOPRAZOLE 20 MG TABLET PO SCH ×2 (00:23→11:39)
[2021-07-01] MEDS: FAMOTIDINE 10 MG TABLET PO SCH ×2 (00:24→11:39)
[2021-07-01 00:40] VITALS: BMI 26.9
[2021-07-01 07:27] LABS: BASO % 0.9 % (0-2.0); EOS % 3.5 % (0-4.5); HEMATOCRIT 39.5 % (32.4-45.2); LYMPH % 37.2 % (8-40); MCH 30.5 pg (25.7-33.7); MCHC 32.9 g/dl (32.0-36.0); MEAN CELL VOLUME 92.7 fl (80-96); MEAN PLT VOLUME 9.1 fl (7.5-11.1); NEUT % 51.4 % (42.8-82.8); PLATELET COUNT 226 10^3/uL (134-434); RBC 4.26 M/mm3 (3.60-5.2); RDW 12.3 % (11.6-15.6); WHITE BLOOD COUNT 7.1 K/mm3 (4.0-10.0)
[2021-07-01 07:44] LABS: INR 1.1 (0.83-1.09); PROTHROMBIN TIME (PATIENT) 12.7 SEC (9.7-13.0)
[2021-07-01 07:57] LABS: BLOOD UREA NITROGEN 20.4 mg/dL (7-18); CALCIUM 8.8 mg/dL (8.5-10.1)
[2021-07-01 07:58] LABS: ALBUMIN 3.6 g/dl (3.4-5.0); MAGNESIUM 2.4 mg/dL (1.8-2.4)
[2021-07-01 08:00] LABS: BILIRUBIN,TOTAL 0.4 mg/dL (0.2-1)
[2021-07-01 08:01] LABS: CREATININE 0.8 mg/dL (0.55-1.3)
[2021-07-01 08:02] LABS: TOT PROT 7.1 g/dl (6.4-8.2)
[2021-07-01] MEDS ORDERED: ENOXAPARIN NA (PORCINE) 40 MG/0.4 ML DISP.SYRIN SQ SCH (10:00)
[2021-07-01 18:16] VITALS: BP 114/74; PULSE 62; TEMP 98.7
== END 2021-07-01 18:40 | disposition home or self-care (01) ==
LOC: JER 10:27 → JERBED 13:30 → OBSVTOIN 14:44 → INTOOBSV 14:44 → J4W 07-01 00:12
PROVIDERS: ADMIT Internal Medicine; ATTEND Internal Medicine
PROC: 3E023GC Introduction of Other Therapeutic Substance into Muscle, Percutaneous Approach (ICD-10-PCS; principal; 2021-06-30)
DX: I11.0 Hypertensive heart disease with heart failure (principal); I50.30 Unspecified diastolic (congestive) heart failure; R73.03 Prediabetes; E78.5 Hyperlipidemia, unspecified; K21.9 Gastro-esophageal reflux disease without esophagitis; E66.3 Overweight; Z68.26 Body mass index [BMI] 26.0-26.9, adult
CPT/HCPCS: 36415; 71046-TC-FY; 80053; 80061; 81003; 82550; 83036; 83735; 84100; 84436; 84439; 84443; 84484; 85025; 85610; 85730; 93005; 93010; 93017; 93018; 93306-TC; 96365; 96372; 99285-25; C9803; G0378; U0003; U0005

== ENCOUNTER 2021-11-09 10:04 | Inpatient (IN) | payer OTHER ==
[2021-11-09 10:09] VITALS: BMI 25.3
[2021-11-09 11:58] LABS: BASO % 0.9 % (0-2.0); EOS % 1.5 % (0-4.5); HEMATOCRIT 40.7 % (32.4-45.2); HEMOGLOBIN 13.9 GM/dL (10.7-15.3); LYMPH % 22.5 % (8-40); MCH 30.7 pg (25.7-33.7); MEAN CELL VOLUME 90.3 fl (80-96); NEUT % 67.1 % (42.8-82.8); PLATELET COUNT 274 10^3/uL (134-434); RBC 4.51 M/mm3 (3.60-5.2); RDW 12.4 % (11.6-15.6); WHITE BLOOD COUNT 9.3 K/mm3 (4.0-10.0)
[2021-11-09 12:22] LABS: ALBUMIN 4.2 g/dl (3.4-5.0); CALCIUM 9.6 mg/dL (8.5-10.1)
[2021-11-09] MEDS ORDERED: ACETAMINOPHEN 1000 MG/100 ML BAG IVPB ONE (12:22)
[2021-11-09 12:23] LABS: BLOOD UREA NITROGEN 13.4 mg/dL (7-18)
[2021-11-09 12:26] LABS: CREATININE 0.7 mg/dL (0.55-1.3)
[2021-11-09 12:27] LABS: BILIRUBIN,TOTAL 0.5 mg/dL (0.2-1)
[2021-11-09] MEDS ORDERED: ACETAMINOPHEN INJECTION 100 ML IVPB ONE (12:29)
[2021-11-09] MEDS ORDERED: MELATONIN 5 MG TABLETS PO ONE (22:59)
[2021-11-10] MEDS ORDERED: FAMOTIDINE 20 MG TABLET PO PRN (07:50)
[2021-11-10] MEDS ORDERED: SERTRALINE HCL 25 MG TABLET (FP) PO SCH (10:00)
[2021-11-10] MEDS ORDERED: PANTOPRAZOLE 20 MG TABLET PO SCH (10:00)
[2021-11-10 11:01] VITALS: BP 119/67; PULSE 84; TEMP 98.9
[2021-11-10] MEDS ORDERED: ATORVASTATIN CA 20 MG TABLET (FP) PO SCH (22:00)
== END 2021-11-10 12:25 | disposition home or self-care (01) | DRG 243 ==
LOC: JER 10:04 → JERBED 12:54 → J4W 21:32 → JERBED 11-10 01:48 → J4W 11-10 01:49
PROVIDERS: ADMIT Internal Medicine; ATTEND Internal Medicine
DX: K21.9 Gastro-esophageal reflux disease without esophagitis (principal); I10 Essential (primary) hypertension; E11.9 Type 2 diabetes mellitus without complications; E66.9 Obesity, unspecified; E78.5 Hyperlipidemia, unspecified; R07.89 Other chest pain; Z68.25 Body mass index [BMI] 25.0-25.9, adult
CPT/HCPCS: 0241U-QW; 36415; 71045-TC-FY; 80053; 84484; 85025; 93005; 93010; 99285-25

== ENCOUNTER 2022-01-14 20:23 | Inpatient (IN) | payer OTHER ==
[2022-01-14 20:35] VITALS: BMI 27.5
[2022-01-14] MEDS ORDERED: MECLIZINE HCL 25 MG TABLET (FP) PO ONE (21:59)
[2022-01-14] MEDS ORDERED: METOCLOPRAMIDE HCL INJECTION 10 MG/2 ML VIAL IVPUSH ONE (21:59)
[2022-01-14] MEDS ORDERED: MECLIZINE HCL 25 MG TABLET (FP) ONE (22:08)
[2022-01-14] MEDS ORDERED: METOCLOPRAMIDE HCL INJECTION 10 MG/2 ML VIAL ONE (22:08)
[2022-01-14] MEDS ORDERED: MAG HYDROX/AL HYDROX/SIMETH 30 ML UNIT-DOSE CUP PO ONE (22:13)
[2022-01-14] MEDS ORDERED: FAMOTIDINE 20 MG/50 ML IVPB 20 MG/50 ML MG IVPB ONE ×2 (22:13→22:28)
[2022-01-14] MEDS ORDERED: SUCRALFATE 1 GM TABLET (FP) PO ONE (22:13)
[2022-01-14 22:27] LABS: BASO % 0.7 % (0-2.0); EOS % 2.1 % (0-4.5); HEMATOCRIT 37.5 % (32.4-45.2); HEMOGLOBIN 13.2 GM/dL (10.7-15.3); MCH 32.1 pg (25.7-33.7); MCHC 35.2 g/dl (32.0-36.0); MEAN CELL VOLUME 91.2 fl (80-96); MEAN PLT VOLUME 7.2 fl (7.5-11.1); MONO % 7.9 % (3.8-10.2); NEUT % 66.3 % (42.8-82.8); PLATELET COUNT 294 10^3/uL (134-434); RBC 4.11 M/mm3 (3.60-5.2); RDW 12.2 % (11.6-15.6); WHITE BLOOD COUNT 10.7 K/mm3 (4.0-10.0)
[2022-01-14] MEDS ORDERED: MAG HYDROX/AL HYDROX/SIMETH 30 ML UNIT-DOSE CUP ONE (22:27)
[2022-01-14] MEDS ORDERED: SUCRALFATE 1 GM TABLET (FP) ONE (22:27)
[2022-01-14 22:51] LABS: ALBUMIN 3.8 g/dl (3.4-5.0); CALCIUM 9.1 mg/dL (8.5-10.1)
[2022-01-14 22:52] LABS: BLOOD UREA NITROGEN 13.6 mg/dL (7-18); MAGNESIUM 2.4 mg/dL (1.8-2.4)
[2022-01-14 22:55] LABS: CREATININE 0.7 mg/dL (0.55-1.3)
[2022-01-14 22:56] LABS: BILIRUBIN,TOTAL 0.4 mg/dL (0.2-1); TOT PROT 7.4 g/dl (6.4-8.2)
[2022-01-15] MEDS ORDERED: MECLIZINE HCL 25 MG TABLET (FP) PO PRN (03:13)
[2022-01-15 03:55] VITALS: TEMP 98
[2022-01-15 08:12] LABS: BASO % 0.6 % (0-2.0); EOS % 2.1 % (0-4.5); HEMATOCRIT 39.3 % (32.4-45.2); HEMOGLOBIN 13.9 GM/dL (10.7-15.3); LYMPH % 23.4 % (8-40); MCH 32.1 pg (25.7-33.7); MCHC 35.2 g/dl (32.0-36.0); MEAN CELL VOLUME 91.1 fl (80-96); MEAN PLT VOLUME 7.4 fl (7.5-11.1); NEUT % 66.9 % (42.8-82.8); PLATELET COUNT 297 10^3/uL (134-434); RBC 4.32 M/mm3 (3.60-5.2); RDW 12.3 % (11.6-15.6); WHITE BLOOD COUNT 9.9 K/mm3 (4.0-10.0)
[2022-01-15 08:32] LABS: CALCIUM 9.2 mg/dL (8.5-10.1)
[2022-01-15 08:33] LABS: ALBUMIN 3.8 g/dl (3.4-5.0); BLOOD UREA NITROGEN 11.1 mg/dL (7-18); MAGNESIUM 2.5 mg/dL (1.8-2.4)
[2022-01-15 08:35] LABS: CREATININE 0.8 mg/dL (0.55-1.3)
[2022-01-15 08:36] LABS: BILIRUBIN,TOTAL 0.4 mg/dL (0.2-1); PHOSPHOROUS 3.4 mg/dL (2.5-4.9)
[2022-01-15 08:37] LABS: TOT PROT 7.3 g/dl (6.4-8.2)
[2022-01-15] MEDS ORDERED: ENOXAPARIN NA (PORCINE) 40 MG/0.4 ML DISP.SYRIN SQ SCH (10:00)
[2022-01-15] MEDS ORDERED: DULoxetine HCL 20 MG CAPSULE.DR PO SCH (10:00)
[2022-01-15] MEDS ORDERED: ENOXAPARIN NA (PORCINE) 40 MG/0.4 ML DISP.SYRIN SQ ONE (10:29)
[2022-01-15 18:29] VITALS: BP 132/74; PULSE 84; RESP 18
[2022-01-15] MEDS ORDERED: ATORVASTATIN CA 10 MG TABLET (FP) PO SCH (22:00)
== END 2022-01-15 18:27 | disposition home or self-care (01) | DRG 111 ==
LOC: JER 20:23 → JERBED 21:52 → OBSVTOIN 01-15 03:01
PROVIDERS: ADMIT Internal Medicine; ATTEND Internal Medicine
DX: R42 Dizziness and giddiness (principal); I11.0 Hypertensive heart disease with heart failure; I50.32 Chronic diastolic (congestive) heart failure; E78.5 Hyperlipidemia, unspecified; F32.A Depression, unspecified; K21.9 Gastro-esophageal reflux disease without esophagitis; R73.03 Prediabetes; R07.9 Chest pain, unspecified
CPT/HCPCS: 36415; 70450-TC; 71045-TC-FY; 80053; 80061; 83735; 84100; 84443; 84484; 85025; 93005; 93010; 99285-25; C9803-CS; G0378; U0003; U0005

== ENCOUNTER 2022-08-08 14:12 | Emergency (ER) | payer OTHER ==
[2022-08-08 14:35] VITALS: BP 121/73; PULSE 77; RESP 18; TEMP 97.9; BMI 27.3
[2022-08-08] MEDS ORDERED: METHOCARBAMOL 500 MG TABLET PO ONE (15:10)
[2022-08-08] MEDS ORDERED: KETOROLAC TROMETHAMINE 15 MG/ML VIAL IM ONE (15:10)
[2022-08-08] MEDS ORDERED: LIDOCAINE 5% TOPICAL PATCH TP ONE (15:11)
[2022-08-08] MEDS ORDERED: METHOCARBAMOL 500 MG TABLET ONE (15:38)
[2022-08-08] MEDS ORDERED: KETOROLAC TROMETHAMINE 15 MG/ML VIAL ONE (15:39)
[2022-08-08] MEDS ORDERED: LIDOCAINE 5% TOPICAL PATCH ONE (15:39)
[2022-08-08] MEDS ORDERED: LIDOCAINE PATCH REMOVAL MC SCH (22:00)
== END 2022-08-08 17:08 | disposition home or self-care (01) ==
LOC: JER 14:12
PROC: 3E0233Z Introduction of Anti-inflammatory into Muscle, Percutaneous Approach (ICD-10-PCS; principal; 2022-08-08)
DX: R51.9 Headache, unspecified (principal)
CPT/HCPCS: 99284-25